=== PATIENT | female | born 1940 | race Caucasian/White ===

== ENCOUNTER 2016-10-01 07:42 | Day surgery (SDC) | payer MEDICARE ==
--- NOTE | 2016-09-25 12:46 | HP ---
DATE OF ADMISSION: 10/01/2016 HISTORY OF PRESENT ILLNESS: This is the first orthopedic outpatient admission for surgery for this 75-year- old female who is being evaluated and to undergo surgical treatment for a displaced right elbow olecranon fracture. The patient suffered a fall on 09/16/2016, slipping on the ice outside her home, causing injury. She had positive swelling and pain and was seen in the orthopedic clinic with x-rays found to have a displaced fracture. She is now being scheduled for surgical stabilization of the right olecranon fracture. Procedure has been outlined to her along with risks, complications involved with that and also the postoperative recovery phase. She understands and has consented to surgery. PAST MEDICAL HISTORY: The patient has a history of osteoporosis along with diabetes mellitus 2, gastroesophageal reflux disease. She has hypomagnesemia, hypothyroidism, osteoarthritis. She has peripheral arterial disease, polyarthritis is noted, history of recurrent urinary tract infections, and vitamin D deficiency. CURRENT MEDICATIONS: Include aspirin along with Plavix, calcium supplements. She is on furosemide, magnesium supplements. She is on insulin. She is on levothyroxine, lisinopril, Premarin, Prolia 60, ranitidine 150 mg, spironolactone, and multiple vitamin supplements. PAST SURGICAL HISTORY: Positive. She has had previous gallbladder surgery, hysterectomy. She has had median nerve carpal tunnel surgery, pancreatic surgery, shoulder surgery. Her bleeding history is negative. Blood clotting history is negative. SOCIAL HISTORY: She is nonsmoker and nondrinker. PHYSICAL EXAMINATION: GENERAL: Today reveals a well-developed, well-nourished 75-year-old female, in moderate distress. HEAD, EYES, EARS, NOSE, AND THROAT: Normocephalic. NECK: Supple. CHEST: Clear. COR: Regular rate. ABDOMEN: Soft. GENITOURINARY: Intact. EXTREMITIES: Examination of the right elbow reveals positive pain over the olecranon region with positive defect and olecranon bone itself. Hematoma, ecchymosis formation, and swelling present about the elbow and extending down into her forearm region. Circulation is intact. RADIOLOGY: X-rays reveal a displaced olecranon fracture of the right elbow. PLAN: The patient is to undergo surgical open reduction and internal fixation of olecranon fracture with pins and wire fixation-tension band. MMODAL /[id number]
[~2016-10-01 07:42] MED LIST: Lactated Ringers 1,000 ML IV SCH; Lidocaine 1%/Sod Bicarbonate in NS 8.4% 1 ML Syringe IV PRN; Sodium Chloride 0.9% 10 ML Syringe FLUSH PRN
[2016-10-01] MEDS ORDERED: Ondansetron 4 MG/2 ML SDV ONE (08:30)
[2016-10-01] MEDS ORDERED: ceFAZolin 1 GM Vial ONE (08:30)
[2016-10-01] MEDS ORDERED: Propofol 200 MG/20 ML SDV ONE ×2 (08:31→09:32)
[2016-10-01] MEDS ORDERED: fentaNYL 250 MCG/5 ML SDV ONE (08:31)
--- NOTE | 2016-10-01 08:47 | PCM.PREANE ---
Preanesthetic Assessment - Anesthesia/Transfusion/Family Hx Anesthesia History: Prior Anesthesia Without Reaction Family History of Anesthesia Reaction: No Transfusion History: No Prior Transfusion(s) Intubation History: Unknown - Review of Systems General: No Symptoms Pulmonary: No Symptoms (quit smoking in 2007), Cough (chronic consistent cough noted with post nasal drip.) Cardiovascular: No Symptoms (history of HTN, Peripheral artery disease, PVD/ left leg stent placed 2015 with patient stopping plavix for surgery.) Gastrointestinal: No symptoms (GERD, hisory of pancreatic surgery/ elevated liver enzymes noted.) Neurological: Numbness, Tingling (noted with all four extremities.) Other: Reports: None, Easy Bleeding, Easy Bruising, Diabetes (am blood sugar @ 0835=80), Liver Problems, Thyroid Problems (hypothyroid), Neck Pain (arthritis of c-spine noted per h/p.) - Physical Assessment NPO Status Date: 09/30/16 NPO Status Time: 21:30 Pulse: 62 O2 Sat by Pulse Oximetry: 98 Respiratory Rate: 16 Blood Pressure: 106/71 Temperature: 36.9 C Vital Signs: Last Vital Signs Temp 36.9 C 10/01/16 07:50 Pulse 62 10/01/16 07:50 Resp 16 10/01/16 07:50 BP 106/71 10/01/16 07:50 Pulse Ox 98 10/01/16 07:50 Height: 1.55 m Weight: 55.338 kg ASA Class: 3 Mental Status: Alert & Oriented x3 Airway Class: Mallampati = 2 Dentition: Reports: Dentures (upper), Partial (lower) Thyro-Mental Finger Breadths: 3 Mouth Opening Finger Breadths: 3 ROM/Head Extension: Full Lungs: Clear to auscultation, Normal respiratory effort Cardiovascular: Regular Rate, Regular Rhythm - Lab Values: Laboratory Last Values POC Glucose 80 mg/dL (83-110) L 10/01/16 08:35 MRSA screen is negative. Current labs reviewed, and noted and within acceptable ranges to proceed with scheduled procedure. - Imaging/EKG Impressions: EKG: sinus rhythm rate=75 Echocardiogram: EF=65-70% - Allergies Allergies/Adverse Reactions: Allergies Allergy/AdvReac Type Severity Reaction Status Date / Time No Known Allergies Allergy Verified 09/30/16 16:22 - Anesthesia Plan Pre-Op Medication Ordered: None - Acknowledgements Anesthesia Type Planned: General Anesthesia Pt an Appropriate Candidate for the Planned Anesthesia: Yes Alternatives and Risks of Anesthesia Discussed w Pt/Guardian: Yes Pt/Guardian Understands and Agrees with Anesthesia Plan: Yes PreAnesthesia Questionnaire HEENT History: Reports: Impaired vision, Other (see below) Other HEENT History: has upper denture and lower partial, wears glasses Cardiovascular History: Reports: Hypertension, Stents Other Cardiovascular History: peripheral arteriosclerosis, PAD Respiratory History: Reports: None Gastrointestinal History: Reports: GERD Other Gastrointestinal History: chronic liver disease, pancreatitis, pancreatic surgery, steatohepatitis, excision of pancreatic cyst, liver biopsy Other Genitourinary History: CKD III, dysuria, hematuria, UTI 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: Other OB/BYN History: atrophic vaginitis Musculoskeletal History: Reports: Osteoarthritis, Osteoporosis Other Musculoskeletal History: R elbow pain, degenration of mid cerical disc, arthritis of c spine, polyarthritis, R wrist injury Neurological History: Reports: None Psychiatric History: Reports: None Endocrine/Metabolic History: Reports: Diabetes, type II, Hypothyroidism, Vitamin D deficiency Hematologic History: Reports: Other (see below) Other Hematologic History: calcium deficiency, hypomagnesia Immunologic History: Reports: None Oncologic (Cancer) History: Reports: None Dermatologic History: Reports: None - Past Surgical History Head Surgeries/Procedures: Reports: None HEENT Surgical History: Reports: LASIK, Oral surgery GI Surgical History: Reports: Appendectomy, Cholecystectomy Female Surgical History: Reports: Hysterectomy, Tubal ligation Other Musculoskeletal Surgeries/Procedures:: Right rotator cuff repair, bilateral carpal tunnel release - SUBSTANCE USE Smoking Status *Q: Former Smoker Second Hand Smoke Exposure: No Days Per Week of Alcohol Use: 0 Number of Drinks Per Day: 0 Total Drinks Per Week: 0 Recreational Drug Use History: No - HOME MEDS Home Medications: Home Meds Acetaminophen/Codeine [Tylenol with Codeine No.3 300MG/30MG] 1 tab PO Q4H PRN [History] Amylase/Lipase/Protease [Cathy HIDALGO 24,000 Unit] 1 tab PO TID 12/27/13 [History] Aspirin [Jefferson Chewable Aspirin] 81 mg PO DAILY 12/27/13 [History] Esomeprazole [NexIUM] 40 mg PO DAILY 12/27/13 [History] Insulin Aspart [NovoLOG] 0 units SQ ASDIRECTED 12/27/13 [History] Insulin Glarg,Human.Rec.Analog [Lantus] 22 units SQ BEDTIME 12/27/13 [History] Lisinopril 2.5 mg PO DAILY 12/27/13 [History] Spironolactone [Aldactone] 25 mg PO DAILY 12/27/13 [History] diphenhydrAMINE [Benadryl] 50 mg PO BEDTIME 12/27/13 [History] Ca Carbonate/Vitamin D3/Vit K [Calcium + D Soft Chewable Tab] 1 tab PO TID 09/30 [History] Cholecalciferol (Vitamin D3) [Vitamin D3] 5,000 units PO DAILY 09/30/16 [History ] Clopidogrel [Plavix] 75 mg PO DAILY 09/30/16 [History] Denosumab [Prolia] 1 injection SQ ASDIRECTED 09/30/16 [History] Estrogens, Conjugated [Premarin Vaginal Crm] 1 applic VAG ASDIRECTED 09/30/16 [ History] Furosemide [Lasix] 40 mg PO DAILY 09/30/16 [History] Leg Cramp Relief 2 tab PO BID 09/30/16 [History] Levothyroxine [Synthroid] 100 mcg PO DAILY 09/30/16 [History] Magnesium Gluconate 27.5 mg PO BID 09/30/16 [History] Magnesium Oxide 500 mg PO BID 09/30/16 [History] Methylcellulose [Citrucel] 1,000 mg PO DAILY 09/30/16 [History] Ranitidine HCl [Zantac] 150 mg PO BID 09/30/16 [History] Rosuvastatin Calcium 5 mg PO BEDTIME 09/30/16 [History] Triamcinolone Acetonide [Triamcinolone Acetonide 0.1% Crm] 1 applic TOP ASDIRECTED PRN 09/30/16 [History] - CURRENT (IN HOUSE) MEDS Current Meds: Current Medications Lactated Ringer's (Ringers, Lactated) 1,000 mls @ 125 mls/hr IV ASDIRECTED [facility] Last Admin: 10/01/16 08:00 Dose: 125 mls/hr Lidocaine/Sodium Bicarbonate (Buffered Lidocaine 1% In Ns 8.4%) 0.25 ml IV ONETIME PRN PRN Reason: Prior to IV Start Last Admin: 10/01/16 07:59 Dose: 0.25 ml Sodium Chloride (Saline Flush) 10 ml FLUSH ASDIRECTED PRN PRN Reason: Keep Vein Open Discontinued Medications Cefazolin Sodium (Ancef) Confirm Administered Dose 2 gm .ROUTE .STK-MED ONE Stop: 10/01/16 08:31 Fentanyl (Sublimaze) Confirm Administered Dose 250 mcg .ROUTE .STK-MED ONE Stop: 10/01/16 08:32 Ondansetron HCl (Zofran) Confirm Administered Dose 4 mg .ROUTE .STK-MED ONE Stop: 10/01/16 08:31 Propofol (Diprivan 20 Ml) Confirm Administered Dose 200 mg .ROUTE .STK-MED ONE Stop: 10/01/16 08:32
[2016-10-01] MEDS ORDERED: Lidocaine 1% 0 ML ONE (09:31)
[2016-10-01] MEDS ORDERED: 50% Dextrose in Water 50 ML Syringe IVPUSH ONE (09:32)
[2016-10-01] MEDS ORDERED: fentaNYL 100 MCG/2 ML SDV ONE (09:32)
[2016-10-01] MEDS ORDERED: Midazolam 1 MG/ML 2 ML SDV ONE (09:32)
[2016-10-01] MEDS ORDERED: Iodine/Sodium Iodide 2% Tincture 30 ML Bottle ONE (09:53)
[2016-10-01] MEDS ORDERED: Lidocaine 1% with EPINEPHrine 1:100,000 20 ML MDV ONE (09:55)
[2016-10-01] MEDS ORDERED: Acetaminophen/Codeine 300-30 MG Tab PO PRN (10:00)
[2016-10-01] MEDS ORDERED: Ketorolac 15 MG/ML SDV IVPUSH PRN (10:00)
[2016-10-01] MEDS ORDERED: Ondansetron 4 MG/2 ML SDV IVPUSH PRN ×2 (10:00→11:01)
[2016-10-01] MEDS ORDERED: Sodium Chloride 0.9% 1,000 ML ONE (10:07)
[2016-10-01] MEDS: fentaNYL 100 MCG/2 ML SDV IVPUSH PRN ×3 (11:59→12:23)
--- NOTE | 2016-10-01 11:59 | PCM.POSTAN ---
POST ANESTHESIA ASSESSMENT - MENTAL STATUS Mental Status: alert, oriented - VITAL SIGNS Pulse Rate: 92 SaO2: 94 Resp Rate: 16 Blood Pressure: 137/52 Temperature: 36.2 C - RESPIRATORY Respiratory Status: respiratory rate WNL, airway patent, O2 saturation stable, supplemental oxygen - CARDIOVASCULAR CV Status: pulse rate WNL, blood pressure stable - GASTROINTESTINAL GI Status: no symptoms - PAIN Pain Score: 9 (fentany given via IV) - POST OP HYDRATION Hydration Status: adequate & stable
[2016-10-01] MEDS ORDERED: oxyCODONE ER 10 MG TAB.ER PO ONE (12:15)
[2016-10-01 13:47] VITALS: BP 135/50
--- NOTE | 2016-10-02 08:29 | CR ---
Right elbow: Two fluoroscopic spot views were obtained utilizing C-arm device of the right elbow. Comparison: Previous right elbow study of 09/25/16. Study shows less displacement of previously noted displaced olecranon process fracture. Fluoroscopy time given as 10.9 seconds. Impression: 1. Less displacement of previous fracture. Diagnostic code #2
--- NOTE | 2016-10-02 09:06 | OR ---
DATE OF OPERATION: 10/01/2016 SURGEON: Dick Bond MD PREOPERATIVE DIAGNOSIS: Comminuted olecranon fracture with avulsion of triceps tendon. POSTOPERATIVE DIAGNOSIS: Comminuted olecranon fracture with avulsion of triceps tendon. ANESTHESIA: General. OPERATION PERFORMED: Open reduction of olecranon fracture, repair of biceps tendon, and avulsion fracture, right elbow. DESCRIPTION OF PROCEDURE: The patient was taken to the operating room in supine position. She was placed under a general anesthesia. The right arm and upper extremity were prepped and draped by standard technique. After prepping and draping, the area of the right elbow was identified for approach, where the distal tip of the olecranon extending up onto the triceps through the skin and to the subcutaneous tissues and these were dissected off the olecranon bone structure and also over the triceps tendon muscle unit. Once the area of the fracture and avulsion was identified, it was then debrided, the hematoma and the early callus formation was removed from the fracture site creating a nice bleeding bed on the olecranon bone and then also bleeding structures on the triceps tendon with its bone fragments. I was opted not to go with a tension band wiring, but rather to go to a direct repair with drill holes being placed, angulated through the distal olecranon into the fracture site proximally. A #5 FiberWire was then used and passed through the drill holes, this incorporated into the distal triceps tendon securing but securely back onto the olecranon with the elbow in approximately 45 degrees of extension. Once the sutures were in place, 4 sutures were used, it was then tested, range of motion was full, there was absolutely no movement from fixation was identified at the site of repair. The operation proceeded with irrigation of wound area. The deep tissues were closed with 2-0 Vicryl and 3-0 Vicryl. Skin was then closed with interrupted 3-0 Prolene vertical and mattress sutures. The patient was then placed in standard dressings and splint. Hardcopy of x-rays were taken at the completion of the surgery, found the fracture repair to be almost anatomic. The patient tolerated the procedure well and left the operating room in stable condition to room for recovery. ESTIMATED BLOOD LOSS: MMODAL /[id number]
== END 2016-10-01 13:35 | disposition home or self-care (01) ==
LOC: JD.SDS 07:42
PROVIDERS: ATTEND Specialist
DX: S52.021A Displaced fracture of olecranon process without intraarticular extension of right ulna, initial encounter for closed fracture (principal); E11.9 Type 2 diabetes mellitus without complications; K21.9 Gastro-esophageal reflux disease without esophagitis; E83.42 Hypomagnesemia; E03.9 Hypothyroidism, unspecified; E55.9 Vitamin D deficiency, unspecified; I73.9 Peripheral vascular disease, unspecified; Z90.710 Acquired absence of both cervix and uterus; Z98.890 Other specified postprocedural states; W00.0XXA Fall on same level due to ice and snow, initial encounter; Y92.009 Unspecified place in unspecified non-institutional (private) residence as the place of occurrence of the external cause
CPT/HCPCS: 24341; 24685; 76000; 82962; A9270; J0690; J2405; J3010; J7040; J7060; J7120; 01710; J2250; J2704

== ENCOUNTER 2017-04-14 11:59 | Emergency (ER) | payer MEDICARE ==
[2017-04-14 12:12] VITALS: BP 114/62
[2017-04-14] MEDS ORDERED: Sodium Chloride 0.9% 10 ML Syringe FLUSH PRN (12:29)
--- NOTE | 2017-04-14 13:27 | EDM.PDOC ---
ED HPI GENERAL MEDICAL PROBLEM - General Chief Complaint: Respiratory Problem Stated Complaint: SOB Time Seen by Provider: 04/14/17 12:15 Source of Information: Reports: Patient, RN Notes Reviewed - History of Present Illness INITIAL COMMENTS - FREE TEXT/NARRATIVE: 76-year-old lady comes in with worsening shortness of breath, generalized weakness and dizziness especially with exertion. She states that she does get quite short of breath walking even short distances which is a change for her. Then does become also somewhat weak lightheaded and dizzy. With exertion and shortness of breath and her chest does start "getting tight". She has no chest discomfort at time of my exam. She has had very occasional nonproductive cough. He has had recent sinus congestion. She also has had increased diarrhea, primarily loose stools for about 2 weeks. Occasional nausea but has not been vomiting. No abdominal pain at this time. No recent fever or chills. Middle Chest Pain Score (Numeric/FACES): 2 - Related Data Allergies Allergy/AdvReac Type Severity Reaction Status Date / Time No Known Allergies Allergy Verified 04/14/17 12:12 Home Meds: Home Meds Acetaminophen/Codeine [Tylenol with Codeine No.3 300MG/30MG] 1 tab PO Q4H PRN [History] Amylase/Lipase/Protease [Cathy HIDALGO 24,000 Unit] 1 tab PO TID 12/27/13 [History] Aspirin [Jefferson Chewable Aspirin] 81 mg PO DAILY 12/27/13 [History] Esomeprazole [NexIUM] 40 mg PO DAILY 12/27/13 [History] Insulin Aspart [NovoLOG] 0 units SQ ASDIRECTED 12/27/13 [History] Insulin Glarg,Human.Rec.Analog [Lantus] 22 units SQ BEDTIME 12/27/13 [History] Lisinopril 2.5 mg PO DAILY 12/27/13 [History] Spironolactone [Aldactone] 25 mg PO DAILY 12/27/13 [History] diphenhydrAMINE [Benadryl] 50 mg PO BEDTIME 12/27/13 [History] Ca Carbonate/Vitamin D3/Vit K [Calcium + D Soft Chewable Tab] 1 tab PO TID 09/30 [History] Cholecalciferol (Vitamin D3) [Vitamin D3] 5,000 units PO BID 09/30/16 [History] Clopidogrel [Plavix] 75 mg PO DAILY 09/30/16 [History] Denosumab [Prolia] 1 injection SQ ASDIRECTED 09/30/16 [History] Estrogens, Conjugated [Premarin Vaginal Crm] 1 applic VAG ASDIRECTED 09/30/16 [ History] Furosemide [Lasix] 40 mg PO DAILY 09/30/16 [History] Levothyroxine [Synthroid] 100 mcg PO DAILY 09/30/16 [History] Magnesium Oxide 500 mg PO BID 09/30/16 [History] Triamcinolone Acetonide [Triamcinolone Acetonide 0.1% Crm] 1 applic TOP ASDIRECTED PRN 09/30/16 [History] Calcium Carbonate [Calcium] 1,200 mg PO DAILY 04/14/17 [History] Sulfamethoxazole/Trimethoprim [Bactrim Ds Tablet] 0.5 tab PO Q48H 04/14/17 [ History] Past Medical History HEENT History: Reports: Impaired Vision, Other (See Below) Other HEENT History: has upper denture and lower partial, wears glasses Cardiovascular History: Reports: Hypertension, Stents Other Cardiovascular History: peripheral arteriosclerosis, PAD Respiratory History: Reports: None Gastrointestinal History: Reports: GERD Other Gastrointestinal History: chronic liver disease, pancreatitis, pancreatic surgery, steatohepatitis, excision of pancreatic cyst, liver biopsy Other Genitourinary History: CKD III, dysuria, hematuria, UTI [employer] 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: Other OB/BYN History: atrophic vaginitis Musculoskeletal History: Reports: Osteoarthritis, Osteoporosis Other Musculoskeletal History: R elbow pain, degenration of mid cerical disc, arthritis of c spine, polyarthritis, R wrist injury Neurological History: Reports: None Psychiatric History: Reports: None Endocrine/Metabolic History: Reports: Diabetes, Type II, Hypothyroidism, Vitamin D Deficiency Hematologic History: Reports: Other (See Below) Other Hematologic History: calcium deficiency, hypomagnesia Immunologic History: Reports: None Oncologic (Cancer) History: Reports: None Dermatologic History: Reports: None - Past Surgical History Head Surgeries/Procedures: Reports: None HEENT Surgical History: Reports: LASIK, Oral Surgery GI Surgical History: Reports: Appendectomy, Cholecystectomy Female Surgical History: Reports: Hysterectomy, Tubal Ligation Other Musculoskeletal Surgeries/Procedures:: Right rotator cuff repair, bilateral carpal tunnel release Social & Family History - Tobacco Use Smoking Status *Q: Former Smoker Years of Tobacco use: 40 Used Tobacco, but Quit: Yes Month Tobacco Last Used: 10 years Second Hand Smoke Exposure: No - Caffeine Use Caffeine Use: Reports: Coffee, Tea - Alcohol Use Days Per Week of Alcohol Use: 0 Number of Drinks Per Day: 0 Total Drinks Per Week: 0 - Recreational Drug Use Recreational Drug Use: No Drug Use in Last 12 Months: No ED ROS GENERAL - Review of Systems Review Of Systems: See Below Constitutional: Denies: Fever, Chills, Diaphoresis HEENT: Reports: Rhinitis (There has been some sinus congestion mild), Sinus Problem. Denies: Throat Pain, Vertigo Respiratory: Reports: Shortness of Breath. Denies: Wheezing, Pleuritic Chest Pain Cardiovascular: Reports: Chest Pain (Occasional tightness, especially with exertion) GI/Abdominal: Reports: Diarrhea (Primarily loose stools). Denies: Abdominal Pain, Nausea, Vomiting Musculoskeletal: Denies: Neck Pain, Shoulder Pain, Arm Pain Skin: Reports: No Symptoms Neurological: Reports: Dizziness (With exertion), Weakness. Denies: Trouble Speaking (Mild generalized with exertion) ED EXAM, GENERAL - Physical Exam Exam: See Below Exam Limited By: No Limitations General Appearance: Alert, No Apparent Distress Eye Exam: Bilateral Eye: PERRL Throat/Mouth: Normal Inspection, Normal Oropharynx Head: Atraumatic. No: Facial Swelling Neck: Normal Inspection, Supple Respiratory/Chest: No Respiratory Distress, Lungs Clear, Normal Breath Sounds. No: Rales, Rhonchi, Wheezing Cardiovascular: Regular Rate, Rhythm GI/Abdominal: Soft, Non-Tender. No: Guarding Back Exam: Normal Inspection Extremities: Normal Inspection. No: Pedal Edema, Leg Pain Neurological: Alert, Oriented, No Motor/Sensory Deficits Skin Exam: Warm, Dry, Normal Color EKG INTERPRETATION EKG Date: 04/14/17 Rhythm: NSR [place]: Normal P-Wave: Present QRS: Normal ST-T: Other (Diffuse T-wave inversion) Course - Vital Signs Text/Narrative:: Chest x-ray looks normal. Last Recorded V/S: Last Vital Signs Temp 96.2 F 04/14/17 12:08 Pulse 99 04/14/17 12:08 Resp 18 04/14/17 12:08 BP 114/62 04/14/17 12:08 Pulse Ox 98 04/14/17 12:08 - Orders/Labs/Meds Orders: Active Orders 24 hr Category Date Time Status EKG 12 Lead [EKG Documentation Completion] [RC] STAT Care 04/14/17 12:29 Active Peripheral IV Care [RC] . DIRECTED Care 04/14/17 12:30 Active Chest 1V Frontal [CR] Stat Exams 04/14/17 12:29 Taken Sodium Chloride 0.9% [Saline Flush] Med 04/14/17 12:29 Active 10 ml FLUSH ASDIRECTED PRN Peripheral IV Insertion Adult [OM.PC] Stat Oth 04/14/17 12:30 Ordered Medication Orders Sodium Chloride (Saline Flush) 10 ml FLUSH ASDIRECTED PRN PRN Reason: Keep Vein Open Labs: Laboratory Tests 04/14/17 04/14/17 04/14/17 Range/Units 12:47 12:47 12:47 WBC 8.19 (3.98-10.04) K/mm3 RBC 3.65 L (3.98-5.22) M/mm3 Hgb 11.4 (11.2-15.7) gm/L Hct 35.0 (34.1-44.9) % MCV 95.9 H (79.4-94.8) fl MCH 31.2 (25.6-32.2) pg MCHC 32.6 (32.2-35.5) g/dl RDW Std Deviation 43.5 (36.4-46.3) fL Plt Count 211 (182-369) K/mm3 MPV 10.3 (9.4-12.3) fl Neut % (Auto) 69.2 (34.0-71.1) % Lymph % (Auto) 22.0 (19.3-51.7) % [place] % (Auto) 7.8 (4.7-12.5) % Eos % (Auto) 0.6 L (0.7-5.8) Baso % (Auto) 0.2 (0.1-1.2) % Neut # (Auto) 5.66 (1.56-6.13) K/mm3 Lymph # (Auto) 1.80 (1.18-3.74) K/mm3 [place] # (Auto) 0.64 H (0.24-0.36) K/mm3 Eos # (Auto) 0.05 (0.04-0.36) K/mm3 Baso # (Auto) 0.02 (0.01-0.08) K/mm3 D-Dimer, Quantitative (0.19-0.59) mg/L Sodium 134 L (136-145) mEq/L Potassium 5.5 H (3.5-5.1) mEq/L Chloride 101 (98-107) mEq/L Carbon Dioxide 24 (21-32) mEq/L Anion Gap 14.5 (5-15) BUN 20 H (7-18) mg/dL Creatinine 1.4 H (0.55-1.02) mg/dL Est Cr Clr Drug Dosing 26.20 mL/min Estimated GFR (MDRD) 37 (>60) mL/min BUN/Creatinine Ratio 14.3 (14-18) Glucose 331 H (83-115) mg/dL Calcium 8.6 (8.5-10.1) mg/dL Total Bilirubin 0.9 (0.2-1.0) mg/dL AST 250 H (15-37) U/L ALT 157 H (14-59) U/L Alkaline Phosphatase 178 H (46-116) U/L C-Reactive Protein < 0.2 (<1.0) mg/dL NT-Pro-B Natriuret Pep 88373 H (0-450) pg/mL Total Protein 5.8 L (6.4-8.2) g/dl Albumin 3.1 L (3.4-5.0) g/dl Globulin 2.7 gm/dL Albumin/Globulin Ratio 1.2 (1-2) 04/14/17 04/14/17 Range/Units 12:47 15:40 WBC (3.98-10.04) K/mm3 RBC (3.98-5.22) M/mm3 Hgb (11.2-15.7) gm/L Hct (34.1-44.9) % MCV (79.4-94.8) fl MCH (25.6-32.2) pg MCHC (32.2-35.5) g/dl RDW Std Deviation (36.4-46.3) fL Plt Count (182-369) K/mm3 MPV (9.4-12.3) fl Neut % (Auto) (34.0-71.1) % Lymph % (Auto) (19.3-51.7) % [place] % (Auto) (4.7-12.5) % Eos % (Auto) (0.7-5.8) Baso % (Auto) (0.1-1.2) % Neut # (Auto) (1.56-6.13) K/mm3 Lymph # (Auto) (1.18-3.74) K/mm3 [place] # (Auto) (0.24-0.36) K/mm3 Eos # (Auto) (0.04-0.36) K/mm3 Baso # (Auto) (0.01-0.08) K/mm3 D-Dimer, Quantitative 0.55 (0.19-0.59) mg/L Sodium (136-145) mEq/L Potassium 4.8 (3.5-5.1) mEq/L Chloride (98-107) mEq/L Carbon Dioxide (21-32) mEq/L Anion Gap (5-15) BUN (7-18) mg/dL Creatinine (0.55-1.02) mg/dL Est Cr Clr Drug Dosing mL/min Estimated GFR (MDRD) (>60) mL/min BUN/Creatinine Ratio (14-18) Glucose (83-115) mg/dL Calcium (8.5-10.1) mg/dL Total Bilirubin (0.2-1.0) mg/dL AST (15-37) U/L ALT (14-59) U/L Alkaline Phosphatase (46-116) U/L C-Reactive Protein (<1.0) mg/dL NT-Pro-B Natriuret Pep (0-450) pg/mL Total Protein (6.4-8.2) g/dl Albumin (3.4-5.0) g/dl Globulin gm/dL Albumin/Globulin Ratio (1-2) Meds: Medications Generic Name Dose Route Start Last Admin Trade Name Freq PRN Reason Stop Dose Admin Sodium Chloride 10 ml 04/14/17 12:29 Saline Flush FLUSH ASDIRECTED PRN Keep Vein Open - Re-Assessments/Exams Free Text/Narrative Re-Assessment/Exam: 04/14/17 16:13 Initial potassium came back at 5.5, other labs as documented I did have lab do a repeat drawn that came back at 4.8. I do not have a good explanation for her dyspnea with exertion. Her chest x-ray looks very clear. I do not see that she is in any significant failure, no evidence for pneumonia or other acute pulmonary abnormality. Sats have been good while here in the ED. She is not tachypneic at rest. D-dimer is normal. Discharge instructions as documented Departure - Departure Time of Disposition: 16:07 Disposition: Home, Self-Care 01 Condition: Fair Clinical Impression: Dizziness Dyspnea Qualifiers: Dyspnea type: dyspnea on exertion Qualified Code(s): R06.09 - Other forms of dyspnea - Discharge Information Instructions: Shortness of Breath, Dizziness Referrals: Lexy Ruvalcaba, [employer] [Primary Care Provider] - Forms: ED Department Discharge Additional Instructions: Decrease your potassium to 1 tablet daily, continue other medications as prescribed, be sure to drink plenty of water. Try move your appointment with Loren up to next week, call clinic this afternoon or tomorrow morning to try make that change, return to ED if symptoms worsening in any way. - My Orders Last 24 Hours: My Active Orders 04/14/17 12:29 EKG 12 Lead [EKG Documentation Completion] [RC] STAT Chest 1V Frontal [CR] Stat Sodium Chloride 0.9% [Saline Flush] 10 ml FLUSH ASDIRECTED PRN 04/14/17 12:30 Peripheral IV Care [RC] . DIRECTED Peripheral IV Insertion Adult [OM.PC] Stat - Assessment/Plan Last 24 Hours: My Active Orders 04/14/17 12:29 EKG 12 Lead [EKG Documentation Completion] [RC] STAT Chest 1V Frontal [CR] Stat Sodium Chloride 0.9% [Saline Flush] 10 ml FLUSH ASDIRECTED PRN 04/14/17 12:30 Peripheral IV Care [RC] . DIRECTED Peripheral IV Insertion Adult [OM.PC] Stat
--- NOTE | 2017-04-15 11:00 | CR ---
Chest: Portable view of the chest was obtained. Comparison: Prior chest x-ray of 10/06/14. Heart size and mediastinum are within normal limits. Lungs are clear. Surgical clips are seen within the upper right abdomen. Previous right shoulder surgery is noted. Impression: 1. Incidental findings. Nothing acute is identified on portable chest x-ray. Diagnostic code #2
== END 2017-04-14 16:15 | disposition home or self-care (01) ==
LOC: JD.ED 11:59
DX: R42 Dizziness and giddiness (principal); R06.02 Shortness of breath; I12.9 Hypertensive chronic kidney disease with stage 1 through stage 4 chronic kidney disease, or unspecified chronic kidney disease; E11.22 Type 2 diabetes mellitus with diabetic chronic kidney disease; N18.3 Chronic kidney disease, stage 3 (moderate); E03.9 Hypothyroidism, unspecified; Z87.891 Personal history of nicotine dependence; M19.90 Unspecified osteoarthritis, unspecified site; Z79.899 Other long term (current) drug therapy; Z79.4 Long term (current) use of insulin; Z79.82 Long term (current) use of aspirin
CPT/HCPCS: 36415; 71010; 71010-26; 80053; 83880; 84132; 85025; 85379; 86140; 93005; 93010; 99283-25; 99285-25

== ENCOUNTER 2018-02-13 08:14 | Day surgery (SDC) | payer MEDICARE ==
--- NOTE | 2018-02-13 07:05 | HP ---
DATE OF ADMISSION: 02/13/2018 CHIEF COMPLAINT: Uncomfortable lump in the mid abdomen. HISTORY OF PRESENT ILLNESS: This 77-year-old female has complaints of uncomfortable lump in the middle portion of her abdomen. This by history and examination is compatible with an incisional hernia. She states she has had this over the last 2 years and it is most uncomfortable after she eats. It is easily visible. She is able to push it in, but with some difficulty and it spontaneously returns, characteristic of a hernia. She shows no signs of obstruction and is not incarcerated. This is a primary hernia and in an old incision area from her prior surgeries. PAST MEDICAL HISTORY: The patient has no known allergies. CURRENT MEDICATIONS: Multiple and they are on her chart. These were all reviewed. Significant ones are carvedilol 6.25 mg p.o. twice a day. She takes Creon 24,000 with meals. She takes a furosemide 40 mg. She takes levothyroxine, lisinopril 2.5 mg, magnesium gluconate, NovoLog 100 units subcutaneous. She takes potassium supplements one daily, ranitidine for reflux, spironolactone 1 tablet a day, and multiple [id number] medications. 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 She has also had a cholecystectomy and appendectomy. She had a lower midline incision from a hysterectomy that was preceded by a tubal ligation. She has had no other surgeries. FAMILY HISTORY/SOCIAL HISTORY: She is single. She is 1 of 10 children. She has 7 children who were born vaginally. 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 REVIEW OF SYSTEMS: ENDOCRINE: Positive for insulin-dependent diabetes. CARDIOVASCULAR: Positive for history of congestive heart failure, however, cardiology workup done 1 month ago cleared her for any surgical procedure and she is currently totally asymptomatic. GASTROINTESTINAL: Positive for reflux. All other systems are negative. PHYSICAL EXAMINATION: HEENT: Normal. The patient wears glasses and sees adequately. NECK: There is no adenopathy and no bruits are noted. CHEST: Lungs are clear bilaterally to auscultation. HEART: Normal sinus rhythm without murmur. ABDOMEN: Shows a reducible hernia about 4 cm above the umbilicus and a midline incision. This dissects off to the right side but is reducible, and hernia defect itself only measures less than 2 cm. This contains bowel as it is palpable in the hernia and being reduced. EXTREMITIES: Normal. Have no edema. Good range of motion and pulses. NEUROLOGIC: Grossly intact. ASSESSMENT: Incisional hernia. PLAN: I discussed risks, benefits, and expected outcomes from an incisional hernia repair with this patient. She has a Cardiology clearance and otherwise is healthy. This should be relatively simple hernia to fix and should be able to be done under general anesthesia but as an outpatient. MMCHINYERE /[id number]
[~2018-02-13 08:14] MED LIST changes: +Lidocaine 1%/Sod Bicarbonate in NS 8.4% 1 ML Syringe IDERM PRN; -Lidocaine 1%/Sod Bicarbonate in NS 8.4% 1 ML Syringe IV PRN
--- NOTE | 2018-02-13 09:28 | PCM.PREANE ---
Preanesthetic Assessment - Anesthesia/Transfusion/Family Hx Anesthesia History: Prior Anesthesia Without Reaction Family History of Anesthesia Reaction: No Transfusion History: No Prior Transfusion(s) Intubation History: Unknown - Review of Systems General: No Symptoms Pulmonary: No Symptoms Cardiovascular: No Symptoms, Other (History of CHF, ECHO 45-50%, on lasix, denies symptoms, >4 MET activity tolerance. Cleared per cardiology for surgery. ) Gastrointestinal: Other (GERD with Hiatal hernia, controlled with her medication. No symptoms currently. ) Neurological: No Symptoms Other: Reports: Diabetes (Type II, Blood glucose 156 this am. ), Liver Problems (Chronic Pancreatitis), Thyroid Problems - Physical Assessment NPO Status Date: 02/12/18 NPO Status Time: 21:30 Pulse: 58 O2 Sat by Pulse Oximetry: 96 Respiratory Rate: 16 Blood Pressure: 142/69 Temperature: 36.3 C Weight: 52.6 kg ASA Class: 3 Mental Status: Alert & Oriented x3 Airway Class: Mallampati = 2 Dentition: Reports: Dentures, Partial Thyro-Mental Finger Breadths: 3 Mouth Opening Finger Breadths: 3 ROM/Head Extension: Full Lungs: Clear to Auscultation, Normal Respiratory Effort Cardiovascular: Regular Rate, Regular Rhythm, Other - Lab Values: Laboratory Last Values POC Glucose 156 mg/dL (83-110) H 02/13/18 09:10 - Allergies Allergies/Adverse Reactions: Allergies Allergy/AdvReac Type Severity Reaction Status Date / Time Iodinated Contrast- Oral and Allergy Vomiting Verified 02/12/18 14:14 IV Dye - Anesthesia Plan Beta Melchor: Carvedilol Med Last Dose Date: 02/13/18 Med Last Dose Time: 06:00 - Acknowledgements Anesthesia Type Planned: MAC Pt an Appropriate Candidate for the Planned Anesthesia: Yes Alternatives and Risks of Anesthesia Discussed w Pt/Guardian: Yes Pt/Guardian Understands and Agrees with Anesthesia Plan: Yes PreAnesthesia Questionnaire HEENT History: Reports: Impaired Vision, Other (See Below) Other HEENT History: has upper denture and lower partial, wears glasses Cardiovascular History: Reports: Hypertension, Stents Other Cardiovascular History: peripheral arteriosclerosis, PAD Respiratory History: Reports: None Gastrointestinal History: Reports: GERD Other Gastrointestinal History: chronic liver disease, pancreatitis, pancreatic surgery, steatohepatitis, excision of pancreatic cyst, liver biopsy Other Genitourinary History: CKD III, dysuria, hematuria, UTI AXLE TURNER History: Reports: Other OB/BYN History: atrophic vaginitis Musculoskeletal History: Reports: Osteoarthritis, Osteoporosis Other Musculoskeletal History: R elbow pain, degenration of mid cerical disc, arthritis of c spine, polyarthritis, R wrist injury Neurological History: Reports: None Psychiatric History: Reports: None Endocrine/Metabolic History: Reports: Diabetes, Type II, Hypothyroidism, Vitamin D Deficiency Hematologic History: Reports: Other (See Below) Other Hematologic History: calcium deficiency, hypomagnesia Immunologic History: Reports: None Oncologic (Cancer) History: Reports: None Dermatologic History: Reports: None - Past Surgical History Head Surgeries/Procedures: Reports: None HEENT Surgical History: Reports: LASIK, Oral Surgery GI Surgical History: Reports: Appendectomy, Cholecystectomy Female Surgical History: Reports: Hysterectomy, Tubal Ligation Other Musculoskeletal Surgeries/Procedures:: Right rotator cuff repair, bilateral carpal tunnel release - HOME MEDS Home Medications: Home Meds Acetaminophen/Codeine [Tylenol with Codeine No.3 300MG/30MG] 1 tab PO Q4H PRN [History] Amylase/Lipase/Protease [Creon DR 24,000 Unit] 1 tab PO TID 12/27/13 [History] Insulin Aspart [NovoLOG] 0 units SQ ASDIRECTED 12/27/13 [History] Lisinopril 2.5 mg PO DAILY 12/27/13 [History] Spironolactone [Aldactone] 25 mg PO DAILY 12/27/13 [History] diphenhydrAMINE [Benadryl] 50 mg PO BEDTIME 12/27/13 [History] Ca Carbonate/Vitamin D3/Vit K [Calcium + D Soft Chewable Tab] 1 tab PO TID 09/30 [History] Cholecalciferol (Vitamin D3) [Vitamin D3] 5,000 units PO DAILY 09/30/16 [History ] Denosumab [Prolia] 1 injection SQ ASDIRECTED 09/30/16 [History] Furosemide [Lasix] 40 mg PO BID 09/30/16 [History] Carvedilol 6.25 mg PO BID 02/12/18 [History] Cyanocobalamin (Vitamin B-12) [Vitamin B-12] 1,000 mcg PO DAILY 02/12/18 [ History] Insulin Glargine,Hum.Rec.Anlog [Basaglar Kwikpen U-100] 22 units SQ DAILY [History] Leg Cramp Relief 2 tab PO BID 02/12/18 [History] Levothyroxine 112 mcg PO DAILY 02/12/18 [History] Magnesium Gluconate [Magonate] 1 tab PO TID 02/12/18 [History] Methylcellulose [Citrucel] 1,000 mg PO DAILY 02/12/18 [History] Potassium 99 mg PO DAILY 02/12/18 [History] Ranitidine [Zantac] 150 mg PO BID 02/12/18 [History] Rosuvastatin [Crestor] 5 mg PO DAILY 02/12/18 [History] - CURRENT (IN HOUSE) MEDS Current Meds: Current Medications Lactated Ringer's (Ringers, Lactated) 1,000 mls @ 125 mls/hr IV ASDIRECTED LAZARA Stop: 02/13/18 23:00 Lidocaine/Sodium Bicarbonate (Buffered Lidocaine 1% In Ns 8.4%) 0.25 ml IDERM ONETIME PRN PRN Reason: Prior to IV Start Stop: 02/13/18 18:00 Sodium Chloride (Saline Flush) 10 ml FLUSH ASDIRECTED PRN PRN Reason: Keep Vein Open Stop: 02/13/18 18:00
[2018-02-13] MEDS ORDERED: Propofol 200 MG/20 ML SDV ONE (10:21)
[2018-02-13] MEDS ORDERED: Lidocaine 1% 4 ML ONE (10:22)
[2018-02-13] MEDS ORDERED: fentaNYL 100 MCG/2 ML SDV ONE (10:22)
[2018-02-13] MEDS ORDERED: Lidocaine 1% with EPINEPHrine 1:100,000 20 ML MDV ONE (11:11)
[2018-02-13] MEDS ORDERED: Ketamine 500 mg/10 ML MDV ONE (11:27)
[2018-02-13 13:30] VITALS: BP 119/79
--- NOTE | 2018-02-13 18:07 | OR ---
DATE OF OPERATION: 02/13/2018 SURGEON: Miquel Brooke MD PREOPERATIVE DIAGNOSIS: Incisional hernia. POSTOPERATIVE DIAGNOSIS: Incisional hernia. OPERATION PERFORMED: Open repair of incisional hernia. ANESTHESIA: Local plus MAC. SPECIMEN: None. INDICATION FOR PROCEDURE: This 77-year-old female has a symptomatic incisional hernia. She has had multiple abdominal surgeries including pancreatectomy, cholecystectomy, appendectomy, and hysterectomy. She has a palpable mass just above the umbilicus up to the right side, consistent with incisional hernia. This tends to bother her primarily after eating. DESCRIPTION OF PROCEDURE: After adequate preparation, a midline incision was localized with 1% xylocaine. An incision was made and carried down to the fascia. This was from the hernia sac. The defect measured 2 cm in diameter. The sac and contents were reduced back into the abdomen. There was a free area underneath the fascial edges that was cleared up and the wound was closed transversely using interrupted 0 Ethibond sutures. A 3-0 Vicryl was used for the subcutaneous layer and 4-0 Monocryl for the skin. The patient was taken to the recovery room. ESTIMATED BLOOD LOSS: MMODAL /[id number]
== END 2018-02-13 12:40 | disposition home or self-care (01) ==
LOC: JD.SDS 08:14
PROVIDERS: ATTEND Surgery
DX: K43.2 Incisional hernia without obstruction or gangrene (principal); K21.9 Gastro-esophageal reflux disease without esophagitis; I73.9 Peripheral vascular disease, unspecified; I13.0 Hypertensive heart and chronic kidney disease with heart failure and stage 1 through stage 4 chronic kidney disease, or unspecified chronic kidney disease; E11.22 Type 2 diabetes mellitus with diabetic chronic kidney disease; N18.3 Chronic kidney disease, stage 3 (moderate); I50.9 Heart failure, unspecified; M19.90 Unspecified osteoarthritis, unspecified site; M81.0 Age-related osteoporosis without current pathological fracture; E55.9 Vitamin D deficiency, unspecified; Z79.4 Long term (current) use of insulin; Z79.899 Other long term (current) drug therapy; Z98.890 Other specified postprocedural states; Z91.041 Radiographic dye allergy status
CPT/HCPCS: 49560; 82962; J2704; J3010; J7120; J2001

== ENCOUNTER 2019-03-17 15:17 | Observation (INO) | payer MEDICARE ==
[2019-03-17] MEDS ORDERED: 50% Dextrose in Water 50 ML Syringe ONE (15:22)
[2019-03-17] MEDS ORDERED: 50% Dextrose in Water 50 ML Syringe IVPUSH ONE (15:27)
[2019-03-17] MEDS ORDERED: Sodium Chloride 0.9% 10 ML Syringe FLUSH PRN ×2 (15:32→21:04)
[2019-03-17] MEDS ORDERED: Sodium Chloride 0.9% 1,000 ML IV SCH (15:45)
--- NOTE | 2019-03-17 16:08 | EDM.PDOC ---
ED HPI GENERAL MEDICAL PROBLEM - General Chief Complaint: Neuro Symptoms/Deficits Stated Complaint: [facility] Time Seen by Provider: 03/17/19 15:25 Source of Information: Reports: Patient, EMS, Family History Limitations: Reports: Altered Mental Status - History of Present Illness INITIAL COMMENTS - FREE TEXT/NARRATIVE: The patient presents by [facility] for confusion. She was found in her son's home laying on the floor. It appears she fell. She went there to drop something off. Her son was not home and when he did return later, they found her on the floor. She had a contusion to the forehead. She was confused and cold Her blood sugar was 56 here. An IV was established and 25grams of D50 was given IV. She has no neck pain, chest pain, shortness of breath, abdominal pain, nausea or vomiting. She has no hip pain. She is normally alert and orientated. Even after the blood sugar she was confused. She said she did the laundry at her house. She is cold with a rectal temp of 88. Onset: Gradual Duration: Hour(s): Location: Reports: Head Quality: Reports: Ache Severity: Mild Improves with: Reports: None Worsens with: Reports: None Context: Reports: Trauma (Fall) - Related Data Allergies Allergy/AdvReac Type Severity Reaction Status Date / Time No Known Allergies Allergy Verified 03/17/19 16:27 Home Meds: Home Meds Acetaminophen/Codeine [Tylenol with Codeine No.3 300MG/30MG] 1 tab PO Q4H PRN [History] Amylase/Lipase/Protease [Cathy HIDALGO 24,000 Unit] 1 tab PO TID 12/27/13 [History] Insulin Aspart [NovoLOG] 0 units SQ ASDIRECTED 12/27/13 [History] Lisinopril 2.5 mg PO DAILY 12/27/13 [History] Spironolactone [Aldactone] 25 mg PO DAILY 12/27/13 [History] diphenhydrAMINE [Benadryl] 50 mg PO BEDTIME 12/27/13 [History] Ca Carbonate/Vitamin D3/Vit K [Calcium + D Soft Chewable Tab] 1 tab PO BID 09/30 [History] Cholecalciferol (Vitamin D3) [Vitamin D3] 5,000 units PO DAILY 05/08/17 [History ] Denosumab [Prolia] 1 injection SQ ASDIRECTED 09/30/16 [History] Furosemide [Lasix] 40 mg PO BID 09/30/16 [History] Carvedilol 6.25 mg PO BID 02/12/18 [History] Cyanocobalamin (Vitamin B-12) [Vitamin B-12] 1,000 mcg PO DAILY 02/12/18 [ History] Insulin Glargine,Hum.Rec.Anlog [Basaglar Kwikpen U-100] 22 units SQ DAILY [History] Leg Cramp Relief 2 tab PO BID 02/12/18 [History] Magnesium Gluconate [Magonate] 2 tab PO TID 02/12/18 [History] Potassium 99 mg PO DAILY 02/12/18 [History] Rosuvastatin [Crestor] 5 mg PO DAILY 02/12/18 [History] Clopidogrel [Plavix] 75 mg PO DAILY 02/13/18 [History] Pantoprazole Sodium [Protonix] 20 mg PO DAILY 12/15/18 [History] Acetaminophen [Tylenol] 650 mg PO Q6H 03/17/19 [History] Aspirin 81 mg PO DAILY 03/17/19 [History] Ciprofloxacin [Ciprofloxacin HCl] 250 mg PO DAILY 03/17/19 [History] Levothyroxine 112 mcg PO DAILY 03/17/19 [History] Past Medical History HEENT History: Reports: Impaired Vision, Other (See Below) Other HEENT History: has upper denture and lower partial, wears glasses Cardiovascular History: Reports: Hypertension, Stents Other Cardiovascular History: peripheral arteriosclerosis, PAD Respiratory History: Reports: None Gastrointestinal History: Reports: GERD Other Gastrointestinal History: chronic liver disease, pancreatitis, pancreatic surgery, steatohepatitis, excision of pancreatic cyst, liver biopsy Other Genitourinary History: CKD III, dysuria, hematuria, UTI [employer] History: Reports: Other [employer] History: atrophic vaginitis Musculoskeletal History: Reports: Osteoarthritis, Osteoporosis Other Musculoskeletal History: R elbow pain, degenration of mid cerical disc, arthritis of c spine, polyarthritis, R wrist injury Neurological History: Reports: None Psychiatric History: Reports: None Endocrine/Metabolic History: Reports: Diabetes, Type II, Hypothyroidism, Vitamin D Deficiency Hematologic History: Reports: Other (See Below) Other Hematologic History: calcium deficiency, hypomagnesia Immunologic History: Reports: None Oncologic (Cancer) History: Reports: None Dermatologic History: Reports: None - Past Surgical History Head Surgeries/Procedures: Reports: None HEENT Surgical History: Reports: LASIK, Oral Surgery Respiratory Surgical History: Reports: None GI Surgical History: Reports: Appendectomy, Cholecystectomy Female Surgical History: Reports: Hysterectomy, Tubal Ligation Endocrine Surgical History: Reports: None Neurological Surgical History: Reports: None Other Musculoskeletal Surgeries/Procedures:: Right rotator cuff repair, bilateral carpal tunnel release Oncologic Surgical History: Reports: None Social & Family History - Tobacco Use Smoking Status *Q: Unknown Ever Smoked - Caffeine Use Caffeine Use: Reports: Other Caffeine Use Comment: Unable to obtain due to AMS. ED ROS GENERAL - Review of Systems Review Of Systems: See Below Constitutional: Reports: No Symptoms HEENT: Reports: No Symptoms Respiratory: Reports: No Symptoms Cardiovascular: Reports: No Symptoms Endocrine: Reports: No Symptoms GI/Abdominal: Reports: No Symptoms : Reports: No Symptoms Musculoskeletal: Reports: Other (Skin tear right elbow) Neurological: Reports: Confusion ED EXAM, NEURO - Physical Exam Exam: See Below Exam Limited By: Altered Mental Status General Appearance: Alert Ears: Normal External Exam Nose: Normal Inspection Head Exam: Other (Eccymosis, edema and an abrasion to the left forehead) Neck: Tender Midline Respiratory/Chest: No Respiratory Distress, Lungs Clear, Normal Breath Sounds Cardiovascular: Regular Rate, Rhythm, No Edema, No Murmur GI/Abdominal: Soft, Non-Tender, No Organomegaly, No Mass Neurological: Alert, No Motor/Sensory Deficits, Other (Confused) Back Exam: Normal Inspection Extremities: Other (Skin tear to the right elbow. abrasion to the left ankle, knee and hip without pain) EKG INTERPRETATION EKG Date: 03/17/19 Time: 16:20 Rhythm: NSR Rate (Beats/Min): 51 Ward: Normal P-Wave: Present QRS: Normal ST-T: Normal QT: Normal Course - Vital Signs Last Recorded V/S: Last Vital Signs Temp 88.3 F L 03/17/19 15:38 Pulse 58 L 03/17/19 15:38 Resp 16 03/17/19 15:38 BP 136/119 H 03/17/19 15:38 Pulse Ox 100 03/17/19 15:38 - Orders/Labs/Meds Orders: Active Orders 24 hr Category Date Time Status Cardiac Monitoring [RC] . DIRECTED Care 03/17/19 15:32 Active EKG Documentation Completion [RC] STAT Care 03/17/19 15:33 Active Insert Urinary Catheter [OM.PC] Stat Care 03/17/19 15:30 Ordered Oxygen Therapy [RC] PRN Care 03/17/19 15:32 Active Peripheral IV Care [RC] . DIRECTED Care 03/17/19 15:33 Active Urinary Catheter Assessment [RC] ASDIRECTED Care 03/17/19 15:59 Active Abdomen Pelvis wo Cont [CT] Stat Exams 03/17/19 17:23 Taken Cervical Spine wo Cont [CT] Stat Exams 03/17/19 17:24 Taken Chest 1V Frontal [CR] Stat Exams 03/17/19 15:33 Taken Head wo Cont [CT] Stat Exams 03/17/19 15:36 Taken CULTURE BLOOD [BC] Stat Lab 03/17/19 16:50 Received CULTURE BLOOD [BC] Stat Lab 03/17/19 17:00 Received Sodium Chloride 0.9% [Normal Saline] 1,000 ml Med 03/17/19 15:45 Active IV ASDIRECTED Sodium Chloride 0.9% [Saline Flush] Med 03/17/19 15:32 Active 10 ml FLUSH ASDIRECTED PRN Blood Culture x2 Reflex Set [OM.PC] Stat Oth 03/17/19 15:33 Ordered Peripheral IV Insertion Adult [OM.PC] Stat Oth 03/17/19 15:32 Ordered Medication Orders Sodium Chloride (Normal Saline) 1,000 mls @ 125 mls/hr IV ASDIRECTED LAZARA Last Admin: 03/17/19 16:03 Dose: 125 mls/hr Sodium Chloride (Saline Flush) 10 ml FLUSH ASDIRECTED PRN PRN Reason: Keep Vein Open Last Admin: 03/17/19 16:03 Dose: 10 ml Labs: Laboratory Tests 03/17/19 03/17/19 03/17/19 Range/Units 15:21 15:25 15:25 WBC 18.79 H (3.98-10.04) K/mm3 RBC 4.90 (3.98-5.22) M/mm3 Hgb 14.5 D (11.2-15.7) gm/dl Hct 44.5 (34.1-44.9) % MCV 90.8 D (79.4-94.8) fl MCH 29.6 (25.6-32.2) pg MCHC 32.6 (32.2-35.5) g/dl RDW Std Deviation 41.7 (36.4-46.3) fL Plt Count 341 (182-369) K/mm3 MPV 10.6 (9.4-12.3) fl Neut % (Auto) 66.6 (34.0-71.1) % Lymph % (Auto) 26.6 (19.3-51.7) % [place] % (Auto) 5.6 (4.7-12.5) % Eos % (Auto) 0.6 L (0.7-5.8) Baso % (Auto) 0.2 (0.1-1.2) % Neut # (Auto) 12.51 H (1.56-6.13) K/mm3 Lymph # (Auto) 5.00 H (1.18-3.74) K/mm3 [place] # (Auto) 1.06 H (0.24-0.36) K/mm3 Eos # (Auto) 0.11 (0.04-0.36) K/mm3 Baso # (Auto) 0.04 (0.01-0.08) K/mm3 Sodium 138 (136-145) mEq/L Potassium 5.5 H (3.5-5.1) mEq/L Chloride 99 (98-107) mEq/L Carbon Dioxide 34 H (21-32) mEq/L Anion Gap 10.5 (5-15) BUN 26 H (7-18) mg/dL Creatinine 1.4 H (0.55-1.02) mg/dL Est Cr Clr Drug Dosing TNP Estimated GFR (MDRD) 36 (>60) mL/min BUN/Creatinine Ratio 18.6 H (14-18) Glucose 54 L (83-115) mg/dL POC Glucose 59 L (83-110) mg/dL Lactic Acid (0.4-2.0) mmol/L Calcium 9.6 D (8.5-10.1) mg/dL Magnesium 1.8 (1.8-2.4) mg/dl Total Bilirubin 0.7 (0.2-1.0) mg/dL AST 121 H (15-37) U/L ALT 66 H (14-59) U/L Alkaline Phosphatase 160 H (46-116) U/L Creatine Kinase (26-192) U/L Troponin I < 0.017 (0.00-0.056) ng/mL Total Protein 7.3 (6.4-8.2) g/dl Albumin 3.5 (3.4-5.0) g/dl Globulin 3.8 gm/dL Albumin/Globulin Ratio 0.9 L (1-2) Urine Color (Yellow) Urine Appearance (Clear) Urine pH (5.0-8.0) Ur Specific [place] (1.005-1.030) Urine Protein (Negative) Urine Glucose (UA) (Negative) Urine Ketones (Negative) Urine Occult Blood (Negative) Urine Nitrite (Negative) Urine Bilirubin (Negative) Urine Urobilinogen (0.2-1.0) Ur Leukocyte Esterase (Negative) Urine RBC (0-5) /hpf Urine WBC (0-5) /hpf Ur Squamous Epith Cells (0-5) /hpf Urine Bacteria (FEW) /hpf Urine Mucus (FEW) /hpf 03/17/19 03/17/19 03/17/19 Range/Units 15:25 15:25 15:34 WBC (3.98-10.04) K/mm3 RBC (3.98-5.22) M/mm3 Hgb (11.2-15.7) gm/dl Hct (34.1-44.9) % MCV (79.4-94.8) fl MCH (25.6-32.2) pg MCHC (32.2-35.5) g/dl RDW Std Deviation (36.4-46.3) fL Plt Count (182-369) K/mm3 MPV (9.4-12.3) fl Neut % (Auto) (34.0-71.1) % Lymph % (Auto) (19.3-51.7) % [place] % (Auto) (4.7-12.5) % Eos % (Auto) (0.7-5.8) Baso % (Auto) (0.1-1.2) % Neut # (Auto) (1.56-6.13) K/mm3 Lymph # (Auto) (1.18-3.74) K/mm3 [place] # (Auto) (0.24-0.36) K/mm3 Eos # (Auto) (0.04-0.36) K/mm3 Baso # (Auto) (0.01-0.08) K/mm3 Sodium (136-145) mEq/L Potassium (3.5-5.1) mEq/L Chloride (98-107) mEq/L Carbon Dioxide (21-32) mEq/L Anion Gap (5-15) BUN (7-18) mg/dL Creatinine (0.55-1.02) mg/dL Est Cr Clr Drug Dosing Estimated GFR (MDRD) (>60) mL/min BUN/Creatinine Ratio (14-18) Glucose (83-115) mg/dL POC Glucose (83-110) mg/dL Lactic Acid 2.0 (0.4-2.0) mmol/L Calcium (8.5-10.1) mg/dL Magnesium (1.8-2.4) mg/dl Total Bilirubin (0.2-1.0) mg/dL AST (15-37) U/L ALT (14-59) U/L Alkaline Phosphatase (46-116) U/L Creatine Kinase 173 (26-192) U/L Troponin I (0.00-0.056) ng/mL Total Protein (6.4-8.2) g/dl Albumin (3.4-5.0) g/dl Globulin gm/dL Albumin/Globulin Ratio (1-2) Urine Color [place] H (Yellow) Urine Appearance Slt cloudy H (Clear) Urine pH 6.5 (5.0-8.0) Ur Specific [place] 1.015 (1.005-1.030) Urine Protein Negative (Negative) Urine Glucose (UA) Negative (Negative) Urine Ketones Negative (Negative) Urine Occult Blood 3+ H (Negative) Urine Nitrite Negative (Negative) Urine Bilirubin Negative (Negative) Urine Urobilinogen 0.2 (0.2-1.0) Ur Leukocyte Esterase 1+ H (Negative) Urine RBC >100 H (0-5) /hpf Urine WBC 5-10 H (0-5) /hpf Ur Squamous Epith Cells 0-5 (0-5) /hpf Urine Bacteria Rare (FEW) /hpf Urine Mucus Not seen (FEW) /hpf 03/17/19 Range/Units 16:04 WBC (3.98-10.04) K/mm3 RBC (3.98-5.22) M/mm3 Hgb (11.2-15.7) gm/dl Hct (34.1-44.9) % MCV (79.4-94.8) fl MCH (25.6-32.2) pg MCHC (32.2-35.5) g/dl RDW Std Deviation (36.4-46.3) fL Plt Count (182-369) K/mm3 MPV (9.4-12.3) fl Neut % (Auto) (34.0-71.1) % Lymph % (Auto) (19.3-51.7) % [place] % (Auto) (4.7-12.5) % Eos % (Auto) (0.7-5.8) Baso % (Auto) (0.1-1.2) % Neut # (Auto) (1.56-6.13) K/mm3 Lymph # (Auto) (1.18-3.74) K/mm3 [place] # (Auto) (0.24-0.36) K/mm3 Eos # (Auto) (0.04-0.36) K/mm3 Baso # (Auto) (0.01-0.08) K/mm3 Sodium (136-145) mEq/L Potassium (3.5-5.1) mEq/L Chloride (98-107) mEq/L Carbon Dioxide (21-32) mEq/L Anion Gap (5-15) BUN (7-18) mg/dL Creatinine (0.55-1.02) mg/dL Est Cr Clr Drug Dosing Estimated GFR (MDRD) (>60) mL/min BUN/Creatinine Ratio (14-18) Glucose (83-115) mg/dL POC Glucose 203 H (83-110) mg/dL Lactic Acid (0.4-2.0) mmol/L Calcium (8.5-10.1) mg/dL Magnesium (1.8-2.4) mg/dl Total Bilirubin (0.2-1.0) mg/dL AST (15-37) U/L ALT (14-59) U/L Alkaline Phosphatase (46-116) U/L Creatine Kinase (26-192) U/L Troponin I (0.00-0.056) ng/mL Total Protein (6.4-8.2) g/dl Albumin (3.4-5.0) g/dl Globulin gm/dL Albumin/Globulin Ratio (1-2) Urine Color (Yellow) Urine Appearance (Clear) Urine pH (5.0-8.0) Ur Specific [place] (1.005-1.030) Urine Protein (Negative) Urine Glucose (UA) (Negative) Urine Ketones (Negative) Urine Occult Blood (Negative) Urine Nitrite (Negative) Urine Bilirubin (Negative) Urine Urobilinogen (0.2-1.0) Ur Leukocyte Esterase (Negative) Urine RBC (0-5) /hpf Urine WBC (0-5) /hpf Ur Squamous Epith Cells (0-5) /hpf Urine Bacteria (FEW) /hpf Urine Mucus (FEW) /hpf Meds: Medications Generic Name Dose Route Start Last Admin Trade Name Freq PRN Reason Stop Dose Admin Sodium Chloride 1,000 mls @ 125 mls/hr 03/17/19 15:45 03/17/19 16:03 Normal Saline IV 125 mls/hr ASDIRECTED LAZARA Administration Sodium Chloride 10 ml 03/17/19 15:32 03/17/19 16:03 Saline Flush FLUSH 10 ml ASDIRECTED PRN Administration Keep Vein Open Discontinued Medications Generic Name Dose Route Start Last Admin Trade Name Freq PRN Reason Stop Dose Admin Dextrose/Water Confirm 03/17/19 15:22 03/17/19 16:02 Dextrose 50% In Water Administered 03/17/19 15:23 Not Given Dose 50 ml .ROUTE .STK-MED ONE Dextrose/Water 50 ml 03/17/19 15:27 03/17/19 15:27 Dextrose 50% In Water IVPUSH 03/17/19 15:28 50 ml ASDIRECTED ONE Administration - Re-Assessments/Exams Free Text/Narrative Re-Assessment/Exam: 03/17/19 17:25 I ordered an IV warm NS at 125mL/hr, labs, UA, EKG, CT of her head, bear hugger , and 25 grams of D50 IV. Her blood sugar did come up to 203 and she is more alert. Her EKG shows NSR with no acute changes. The CT of her head shows no acute intracranial process. Her WBC was elevated at 19.79. Her K was elevated at 5.5. Her creatinine was elevated at 1.4. Her BUN/creatinine ratio was elevated at 18.6. Her lactic acid is normal at 2. Her AST is elevated at 121. Her ALT is elevated at 66. Her Alk Phos is elevated at 160. Her CK is normal at 173. Her troponin is negative. Her UA shows blood but no UTI. She is making more sense now. She says she is on cipro daily to help avoid UTIs. She has been having diarrhea lately. In the past she had diarrhea and she then had C-dif. She says one time her blood sugar did drop. This morning she did have some juice but nothing else. She remembers going to her sons and dropping off some laundry and then falling. I examined her again and she has some neck pain still and some lower abdominal pain. I have ordered a CT of her neck and abdomen and pelvis without oral or IV contrast. 03/17/19 18:[address] of her cervical spine shows no acute fracture or dislocation. The CT of her abdomen and pelvis shows no acute findings and no evidence to explain hematuria. I feel she needs to be admitted. Her Temp is only up to [address] Martinez and he agreed to the admission. We talked about starting an antibiotic but at this time we do not have a source for any infection. We will hold off until her cultures come back. Departure - Departure Time of Disposition: 18:40 Disposition: Refer to Observation Condition: Fair Clinical Impression: Hypoglycemia, Skin tear of right upper extremity, Multiple contusions Hypothermia Qualifiers: Encounter type: initial encounter Qualified Code(s): T68.XXXA - Hypothermia, initial encounter Fall Qualifiers: Encounter type: initial encounter Qualified Code(s): W19.XXXA - Unspecified fall, initial encounter Contusion of forehead Qualifiers: Encounter type: initial encounter Qualified Code(s): S00.83XA - Contusion of other part of head, initial encounter Skin tear of left hand without complication Qualifiers: Encounter type: initial encounter Qualified Code(s): S61.412A - Laceration without foreign body of left hand, initial encounter - Discharge Information Referrals: PCP,Unknown [Primary Care Provider] - Forms: ED Department Discharge - My Orders Last 24 Hours: My Active Orders 03/17/19 15:30 Insert Urinary Catheter [OM.PC] Stat 03/17/19 15:32 Cardiac Monitoring [RC] . DIRECTED Oxygen Therapy [RC] PRN Sodium Chloride 0.9% [Saline Flush] 10 ml FLUSH ASDIRECTED PRN Peripheral IV Insertion Adult [OM.PC] Stat 03/17/19 15:33 EKG Documentation Completion [RC] STAT Peripheral IV Care [RC] . DIRECTED Chest 1V Frontal [CR] Stat Blood Culture x2 Reflex Set [OM.PC] Stat 03/17/19 15:36 Head wo Cont [CT] Stat 03/17/19 15:45 Sodium Chloride 0.9% [Normal Saline] 1,000 ml IV ASDIRECTED 03/17/19 15:59 Urinary Catheter Assessment [RC] ASDIRECTED 03/17/19 16:50 CULTURE BLOOD [BC] Stat 03/17/19 17:00 CULTURE BLOOD [BC] Stat 03/17/19 17:23 Abdomen Pelvis wo Cont [CT] Stat 03/17/19 17:24 Cervical Spine wo Cont [CT] Stat - Assessment/Plan Last 24 Hours: My Active Orders 03/17/19 15:30 Insert Urinary Catheter [OM.PC] Stat 03/17/19 15:32 Cardiac Monitoring [RC] . DIRECTED Oxygen Therapy [RC] PRN Sodium Chloride 0.9% [Saline Flush] 10 ml FLUSH ASDIRECTED PRN Peripheral IV Insertion Adult [OM.PC] Stat 03/17/19 15:33 EKG Documentation Completion [RC] STAT Peripheral IV Care [RC] . DIRECTED Chest 1V Frontal [CR] Stat Blood Culture x2 Reflex Set [OM.PC] Stat 03/17/19 15:36 Head wo Cont [CT] Stat 03/17/19 15:45 Sodium Chloride 0.9% [Normal Saline] 1,000 ml IV ASDIRECTED 03/17/19 15:59 Urinary Catheter Assessment [RC] ASDIRECTED 03/17/19 16:50 CULTURE BLOOD [BC] Stat 03/17/19 17:00 CULTURE BLOOD [BC] Stat 03/17/19 17:23 Abdomen Pelvis wo Cont [CT] Stat 03/17/19 17:24 Cervical Spine wo Cont [CT] Stat
[2019-03-17] MEDS ORDERED: Ondansetron 4 MG/2 ML SDV IV PRN (21:04)
[2019-03-17] MEDS ORDERED: Acetaminophen 325 MG Tab PO PRN (21:04)
--- NOTE | 2019-03-17 21:23 | PCM.HP.2 ---
H&P History of Present Illness - General Date of Service: 03/17/19 Admit Problem/Dx: Admission Diagnosis/Problem Admission Diagnosis/Problem Hypothermia - History of Present Illness Initial Comments - Free Text/Narative: 78-year-old female with insulin-dependent diabetes was brought in by [facility] for confusion. Patient was at her son's house putting away laundry and had a syncopal episode. Patient states that she was walking up and down stairs and brought in from her car 6 loads of laundry. That morning her fasting blood sugar was 90 and she had a large orange juice but no breakfast. She thought that he would be enough for her to get back home and have breakfast. Patient appears to have hit her head on the floor and wasn't found for 4-5 hours when her [id number] returned from work. She was confused and cold and when EMS arrived her blood sugar was 56 and her rectal temperature was 88.. Patient was given 25 g of D50 and warmed in the emergency room. Patient's confusion slowly lifted and she had a CT of her head, cervical spine, abdomen and pelvis without contrast. All were negative for acute findings. Patient was also found to have hematuria but no significant signs of urinary infection. She is on aspirin and clopidogrel. Chest x-ray was also done which was negative for infection. Initial labs: WBC 18.79, hemoglobin 14.5, platelets 341, sodium 138, elevated potassium of 5.5, BUN 26, creatinine 1.4, lactic acid 2.0, AST 121, ALT 66, alkaline phosphatase 160, creatinine kinase 173, troponin I less than 0.017. UA RBC greater than 100, WBC 5-10, squamous epithelial cells and 0-5, bacteria rare. Patient is on Cipro for prophylactic UTIs. She does have loose stools so a C. difficile toxin was performed on loose stools and was negative. EKG normal sinus rhythm with ventricular rate 51 bpm. - Related Data Allergies/Adverse Reactions: Allergies Allergy/AdvReac Type Severity Reaction Status Date / Time No Known Allergies Allergy Verified 03/17/19 16:27 Home Medications: Home Meds Acetaminophen/Codeine [Tylenol with Codeine No.3 300MG/30MG] 1 tab PO Q4H PRN [History] Amylase/Lipase/Protease [Cathy HIDALGO 24,000 Unit] 1 tab PO TID 12/27/13 [History] Insulin Aspart [NovoLOG] 0 units SQ ASDIRECTED 12/27/13 [History] Lisinopril 2.5 mg PO DAILY 12/27/13 [History] Spironolactone [Aldactone] 25 mg PO DAILY 12/27/13 [History] diphenhydrAMINE [Benadryl] 50 mg PO BEDTIME 12/27/13 [History] Ca Carbonate/Vitamin D3/Vit K [Calcium + D Soft Chewable Tab] 1 tab PO BID 09/30 [History] Cholecalciferol (Vitamin D3) [Vitamin D3] 5,000 units PO DAILY 09/30/16 [History ] Denosumab [Prolia] 1 injection SQ ASDIRECTED 09/30/16 [History] Furosemide [Lasix] 40 mg PO BID 09/30/16 [History] Carvedilol 6.25 mg PO BID 02/12/18 [History] Cyanocobalamin (Vitamin B-12) [Vitamin B-12] 1,000 mcg PO DAILY 02/12/18 [ History] Insulin Glargine,Hum.Rec.Anlog [Basaglar Kwikpen U-100] 22 units SQ DAILY [History] Leg Cramp Relief 2 tab PO BID 02/12/18 [History] Magnesium Gluconate [Magonate] 2 tab PO TID 02/12/18 [History] Potassium 99 mg PO DAILY 02/12/18 [History] Rosuvastatin [Crestor] 5 mg PO DAILY 02/12/18 [History] Clopidogrel [Plavix] 75 mg PO DAILY 02/13/18 [History] Pantoprazole Sodium [Protonix] 20 mg PO DAILY 12/15/18 [History] Acetaminophen [Tylenol] 650 mg PO Q6H 03/17/19 [History] Aspirin 81 mg PO DAILY 03/17/19 [History] Ciprofloxacin [Ciprofloxacin HCl] 250 mg PO DAILY 03/17/19 [History] Levothyroxine 112 mcg PO DAILY 03/17/19 [History] Past Medical History HEENT History: Reports: Impaired Vision, Other (See Below) Other HEENT History: has upper denture and lower partial, wears glasses Cardiovascular History: Reports: Hypertension, Stents Other Cardiovascular History: peripheral arteriosclerosis, PAD Respiratory History: Reports: None Gastrointestinal History: Reports: GERD Other Gastrointestinal History: chronic liver disease, pancreatitis, pancreatic surgery, steatohepatitis, excision of pancreatic cyst, liver biopsy Other Genitourinary History: CKD III, dysuria, hematuria, UTI [employer] History: Reports: Other OB/BYN History: atrophic vaginitis Musculoskeletal History: Reports: Osteoarthritis, Osteoporosis Other Musculoskeletal History: R elbow pain, degenration of mid cerical disc, arthritis of c spine, polyarthritis, R wrist injury Neurological History: Reports: None Psychiatric History: Reports: None Endocrine/Metabolic History: Reports: Diabetes, Type II, Hypothyroidism, Vitamin D Deficiency Hematologic History: Reports: Other (See Below) Other Hematologic History: calcium deficiency, hypomagnesia Immunologic History: Reports: None Oncologic (Cancer) History: Reports: None Dermatologic History: Reports: None - Past Surgical History Head Surgeries/Procedures: Reports: None HEENT Surgical History: Reports: LASIK, Oral Surgery Respiratory Surgical History: Reports: None GI Surgical History: Reports: Appendectomy, Cholecystectomy Female Surgical History: Reports: Hysterectomy, Tubal Ligation Endocrine Surgical History: Reports: None Neurological Surgical History: Reports: None Other Musculoskeletal Surgeries/Procedures:: Right rotator cuff repair, bilateral carpal tunnel release Oncologic Surgical History: Reports: None Social & Family History - Tobacco Use Smoking Status *Q: Unknown Ever Smoked - Caffeine Use Caffeine Use: Reports: Other Caffeine Use Comment: Unable to obtain due to AMS. H&P Review of Systems - Review of Systems: Review Of Systems: ROS reveals no pertinent complaints other than HPI. Exam - Exam Exam: See Below - Vital Signs Vital Signs: Last Vital Signs Temp 88.3 F L 03/17/19 15:38 Pulse 58 L 03/17/19 15:38 Resp 16 03/17/19 15:38 BP 136/119 H 03/17/19 15:38 Pulse Ox 100 03/17/19 15:38 Weight: 130 lb - Exam Quality Assessment: No: Supplemental Oxygen General: Alert, Oriented, 4 HEENT: Conjunctiva Clear, EOMI, Hearing Intact, Mucosa Moist & [place], Nares Patent, Normal Nasal Septum, Other (Bruising on left forehead) Neck: Supple, Trachea Midline, 2 Lungs: Normal Respiratory Effort, Rales (Slight bibasilar Rales) GI/Abdominal Exam: Normal Bowel Sounds, Soft, Non-Tender, No Organomegaly, No Distention, No Abnormal Bruit, No Mass, Pelvis Stable Extremities: Normal Inspection, Normal Range of Motion, No Pedal Edema, Normal Capillary Refill, Other (Bruising on left shoulder and hand) Neurological: Cranial Nerves Intact, Reflexes Equal Bilateral Psychiatric: Alert, Normal Affect, Normal Mood - Patient Data Lab Results Last 24 hrs: Laboratory Results - last 24 hr 03/17/19 03/17/19 03/17/19 Range/Units 15:21 15:25 15:25 WBC 18.79 H (3.98-10.04) K/mm3 RBC 4.90 (3.98-5.22) M/mm3 Hgb 14.5 D (11.2-15.7) gm/dl Hct 44.5 (34.1-44.9) % MCV 90.8 D (79.4-94.8) fl MCH 29.6 (25.6-32.2) pg MCHC 32.6 (32.2-35.5) g/dl RDW Std Deviation 41.7 (36.4-46.3) fL Plt Count 341 (182-369) K/mm3 MPV 10.6 (9.4-12.3) fl Neut % (Auto) 66.6 (34.0-71.1) % Lymph % (Auto) 26.6 (19.3-51.7) % [place] % (Auto) 5.6 (4.7-12.5) % Eos % (Auto) 0.6 L (0.7-5.8) Baso % (Auto) 0.2 (0.1-1.2) % Neut # (Auto) 12.51 H (1.56-6.13) K/mm3 Lymph # (Auto) 5.00 H (1.18-3.74) K/mm3 [place] # (Auto) 1.06 H (0.24-0.36) K/mm3 Eos # (Auto) 0.11 (0.04-0.36) K/mm3 Baso # (Auto) 0.04 (0.01-0.08) K/mm3 Sodium 138 (136-145) mEq/L Potassium 5.5 H (3.5-5.1) mEq/L Chloride 99 (98-107) mEq/L Carbon Dioxide 34 H (21-32) mEq/L Anion Gap 10.5 (5-15) BUN 26 H (7-18) mg/dL Creatinine 1.4 H (0.55-1.02) mg/dL Est Cr Clr Drug Dosing TNP Estimated GFR (MDRD) 36 (>60) mL/min BUN/Creatinine Ratio 18.6 H (14-18) Glucose 54 L (83-115) mg/dL POC Glucose 59 L (83-110) mg/dL Lactic Acid (0.4-2.0) mmol/L Calcium 9.6 D (8.5-10.1) mg/dL Magnesium 1.8 (1.8-2.4) mg/dl Total Bilirubin 0.7 (0.2-1.0) mg/dL AST 121 H (15-37) U/L ALT 66 H (14-59) U/L Alkaline Phosphatase 160 H (46-116) U/L Creatine Kinase (26-192) U/L Troponin I < 0.017 (0.00-0.056) ng/mL Total Protein 7.3 (6.4-8.2) g/dl Albumin 3.5 (3.4-5.0) g/dl Globulin 3.8 gm/dL Albumin/Globulin Ratio 0.9 L (1-2) Urine Color (Yellow) Urine Appearance (Clear) Urine pH (5.0-8.0) Ur Specific [place] (1.005-1.030) Urine Protein (Negative) Urine Glucose (UA) (Negative) Urine Ketones (Negative) Urine Occult Blood (Negative) Urine Nitrite (Negative) Urine Bilirubin (Negative) Urine Urobilinogen (0.2-1.0) Ur Leukocyte Esterase (Negative) Urine RBC (0-5) /hpf Urine WBC (0-5) /hpf Ur Squamous Epith Cells (0-5) /hpf Urine Bacteria (FEW) /hpf Urine Mucus (FEW) /hpf C.difficile 027-NAP1-B1 C. difficile Tox (PCR) 03/17/19 03/17/19 03/17/19 Range/Units 15:25 15:25 15:34 WBC (3.98-10.04) K/mm3 RBC (3.98-5.22) M/mm3 Hgb (11.2-15.7) gm/dl Hct (34.1-44.9) % MCV (79.4-94.8) fl MCH (25.6-32.2) pg MCHC (32.2-35.5) g/dl RDW Std Deviation (36.4-46.3) fL Plt Count (182-369) K/mm3 MPV (9.4-12.3) fl Neut % (Auto) (34.0-71.1) % Lymph % (Auto) (19.3-51.7) % [place] % (Auto) (4.7-12.5) % Eos % (Auto) (0.7-5.8) Baso % (Auto) (0.1-1.2) % Neut # (Auto) (1.56-6.13) K/mm3 Lymph # (Auto) (1.18-3.74) K/mm3 [place] # (Auto) (0.24-0.36) K/mm3 Eos # (Auto) (0.04-0.36) K/mm3 Baso # (Auto) (0.01-0.08) K/mm3 Sodium (136-145) mEq/L Potassium (3.5-5.1) mEq/L Chloride (98-107) mEq/L Carbon Dioxide (21-32) mEq/L Anion Gap (5-15) BUN (7-18) mg/dL Creatinine (0.55-1.02) mg/dL Est Cr Clr Drug Dosing Estimated GFR (MDRD) (>60) mL/min BUN/Creatinine Ratio (14-18) Glucose (83-115) mg/dL POC Glucose (83-110) mg/dL Lactic Acid 2.0 (0.4-2.0) mmol/L Calcium (8.5-10.1) mg/dL Magnesium (1.8-2.4) mg/dl Total Bilirubin (0.2-1.0) mg/dL AST (15-37) U/L ALT (14-59) U/L Alkaline Phosphatase (46-116) U/L Creatine Kinase 173 (26-192) U/L Troponin I (0.00-0.056) ng/mL Total Protein (6.4-8.2) g/dl Albumin (3.4-5.0) g/dl Globulin gm/dL Albumin/Globulin Ratio (1-2) Urine Color [place] H (Yellow) Urine Appearance Slt cloudy H (Clear) Urine pH 6.5 (5.0-8.0) Ur Specific [place] 1.015 (1.005-1.030) Urine Protein Negative (Negative) Urine Glucose (UA) Negative (Negative) Urine Ketones Negative (Negative) Urine Occult Blood 3+ H (Negative) Urine Nitrite Negative (Negative) Urine Bilirubin Negative (Negative) Urine Urobilinogen 0.2 (0.2-1.0) Ur Leukocyte Esterase 1+ H (Negative) Urine RBC >100 H (0-5) /hpf Urine WBC 5-10 H (0-5) /hpf Ur Squamous Epith Cells 0-5 (0-5) /hpf Urine Bacteria Rare (FEW) /hpf Urine Mucus Not seen (FEW) /hpf C.difficile 027-NAP1-B1 C. difficile Tox (PCR) 03/17/19 03/17/19 03/17/19 Range/Units 16:04 17:39 19:00 WBC (3.98-10.04) K/mm3 RBC (3.98-5.22) M/mm3 Hgb (11.2-15.7) gm/dl Hct (34.1-44.9) % MCV (79.4-94.8) fl MCH (25.6-32.2) pg MCHC (32.2-35.5) g/dl RDW Std Deviation (36.4-46.3) fL Plt Count (182-369) K/mm3 MPV (9.4-12.3) fl Neut % (Auto) (34.0-71.1) % Lymph % (Auto) (19.3-51.7) % [place] % (Auto) (4.7-12.5) % Eos % (Auto) (0.7-5.8) Baso % (Auto) (0.1-1.2) % Neut # (Auto) (1.56-6.13) K/mm3 Lymph # (Auto) (1.18-3.74) K/mm3 [place] # (Auto) (0.24-0.36) K/mm3 Eos # (Auto) (0.04-0.36) K/mm3 Baso # (Auto) (0.01-0.08) K/mm3 Sodium (136-145) mEq/L Potassium (3.5-5.1) mEq/L Chloride (98-107) mEq/L Carbon Dioxide (21-32) mEq/L Anion Gap (5-15) BUN (7-18) mg/dL Creatinine (0.55-1.02) mg/dL Est Cr Clr Drug Dosing Estimated GFR (MDRD) (>60) mL/min BUN/Creatinine Ratio (14-18) Glucose (83-115) mg/dL POC Glucose 203 H 107 (83-110) mg/dL Lactic Acid (0.4-2.0) mmol/L Calcium (8.5-10.1) mg/dL Magnesium (1.8-2.4) mg/dl Total Bilirubin (0.2-1.0) mg/dL AST (15-37) U/L ALT (14-59) U/L Alkaline Phosphatase (46-116) U/L Creatine Kinase (26-192) U/L Troponin I (0.00-0.056) ng/mL Total Protein (6.4-8.2) g/dl Albumin (3.4-5.0) g/dl Globulin gm/dL Albumin/Globulin Ratio (1-2) Urine Color (Yellow) Urine Appearance (Clear) Urine pH (5.0-8.0) Ur Specific [place] (1.005-1.030) Urine Protein (Negative) Urine Glucose (UA) (Negative) Urine Ketones (Negative) Urine Occult Blood (Negative) Urine Nitrite (Negative) Urine Bilirubin (Negative) Urine Urobilinogen (0.2-1.0) Ur Leukocyte Esterase (Negative) Urine RBC (0-5) /hpf Urine WBC (0-5) /hpf Ur Squamous Epith Cells (0-5) /hpf Urine Bacteria (FEW) /hpf Urine Mucus (FEW) /hpf C.difficile 027-NAP1-B1 Presumptive negative C. difficile Tox (PCR) Negative 03/17/19 03/17/19 Range/Units 20:03 20:43 WBC (3.98-10.04) K/mm3 RBC (3.98-5.22) M/mm3 Hgb (11.2-15.7) gm/dl Hct (34.1-44.9) % MCV (79.4-94.8) fl MCH (25.6-32.2) pg MCHC (32.2-35.5) g/dl RDW Std Deviation (36.4-46.3) fL Plt Count (182-369) K/mm3 MPV (9.4-12.3) fl Neut % (Auto) (34.0-71.1) % Lymph % (Auto) (19.3-51.7) % [place] % (Auto) (4.7-12.5) % Eos % (Auto) (0.7-5.8) Baso % (Auto) (0.1-1.2) % Neut # (Auto) (1.56-6.13) K/mm3 Lymph # (Auto) (1.18-3.74) K/mm3 [place] # (Auto) (0.24-0.36) K/mm3 Eos # (Auto) (0.04-0.36) K/mm3 Baso # (Auto) (0.01-0.08) K/mm3 Sodium (136-145) mEq/L Potassium (3.5-5.1) mEq/L Chloride (98-107) mEq/L Carbon Dioxide (21-32) mEq/L Anion Gap (5-15) BUN (7-18) mg/dL Creatinine (0.55-1.02) mg/dL Est Cr Clr Drug Dosing Estimated GFR (MDRD) (>60) mL/min BUN/Creatinine Ratio (14-18) Glucose (83-115) mg/dL POC Glucose 213 H 192 H (83-110) mg/dL Lactic Acid (0.4-2.0) mmol/L Calcium (8.5-10.1) mg/dL Magnesium (1.8-2.4) mg/dl Total Bilirubin (0.2-1.0) mg/dL AST (15-37) U/L ALT (14-59) U/L Alkaline Phosphatase (46-116) U/L Creatine Kinase (26-192) U/L Troponin I (0.00-0.056) ng/mL Total Protein (6.4-8.2) g/dl Albumin (3.4-5.0) g/dl Globulin gm/dL Albumin/Globulin Ratio (1-2) Urine Color (Yellow) Urine Appearance (Clear) Urine pH (5.0-8.0) Ur Specific [place] (1.005-1.030) Urine Protein (Negative) Urine Glucose (UA) (Negative) Urine Ketones (Negative) Urine Occult Blood (Negative) Urine Nitrite (Negative) Urine Bilirubin (Negative) Urine Urobilinogen (0.2-1.0) Ur Leukocyte Esterase (Negative) Urine RBC (0-5) /hpf Urine WBC (0-5) /hpf Ur Squamous Epith Cells (0-5) /hpf Urine Bacteria (FEW) /hpf Urine Mucus (FEW) /hpf C.difficile 027-NAP1-B1 C. difficile Tox (PCR) Result Diagrams: 03/17/19 15:25 03/17/19 15:25 Problem List Initiated/Reviewed/Updated: Yes Orders Last 24hrs: Active Orders 24 hr Category Date Time Status Admission Status [Patient Status] [ADT] Routine ADT 03/17/19 18:46 Active Antiembolic Devices [RC] PER UNIT ROUTINE Care 03/17/19 21:08 Ordered Blood Glucose Check, Bedside [RC] QIDACANDBED Care 03/17/19 21:14 Ordered Cardiac Monitoring [RC] . DIRECTED Care 03/17/19 15:32 Active EKG Documentation Completion [RC] STAT Care 03/17/19 15:33 Active Insert Urinary Catheter [OM.PC] Stat Care 03/17/19 15:30 Ordered Oxygen Therapy [RC] PRN Care 03/17/19 15:32 Active Peripheral IV Care [RC] . DIRECTED Care 03/17/19 15:33 Active Up ad Rachael [RC] ASDIRECTED Care 03/17/19 21:04 Ordered Urinary Catheter Assessment [RC] ASDIRECTED Care 03/17/19 15:59 Active VTE/DVT Education [RC] PER UNIT ROUTINE Care 03/17/19 21:04 Ordered Vital Signs [RC] Q4H Care 03/17/19 21:04 Ordered [employer] Diet [DIET] Diet 03/17/19 Dinner Ordered Abdomen Pelvis wo Cont [CT] Stat Exams 03/17/19 17:23 Taken Cervical Spine wo Cont [CT] Stat Exams 03/17/19 17:24 Taken Chest 1V Frontal [CR] Stat Exams 03/17/19 15:33 Taken Head wo Cont [CT] Stat Exams 03/17/19 15:36 Taken CBC WITH AUTO DIFF [HEME] AM Lab 03/18/19 05:11 Ordered COMPREHENSIVE METABOLIC PN,CMP [CHEM] AM Lab 03/18/19 05:11 Ordered CULTURE BLOOD [BC] Stat Lab 03/17/19 16:50 Received CULTURE BLOOD [BC] Stat Lab 03/17/19 17:00 Received MAGNESIUM [CHEM] AM Lab 03/18/19 05:11 Ordered Acetaminophen [Tylenol] Med 03/17/19 21:04 Ordered 650 mg PO Q4H PRN Carvedilol [Coreg] Med 03/18/19 09:00 Ordered 6.25 mg PO BID Clopidogrel [Plavix] Med 03/18/19 09:00 Ordered 75 mg PO DAILY Furosemide [Lasix] Med 03/18/19 09:00 Ordered 40 mg PO BID Insulin Glarg,Human.Rec.Analog [LantUS] Med 03/17/19 21:30 Ordered 10 unit SUBCUT Q24H Insulin Lispro [HumaLOG] Med 03/17/19 22:00 Ordered See Protocol SUBCUT QIDACANDBED Levothyroxine Med 03/18/19 09:00 Ordered 112 mcg PO DAILY Ondansetron [Zofran] Med 03/17/19 21:04 Ordered 4 mg IV Q4H PRN Pantoprazole Sodium [Protonix] Med 03/18/19 09:00 Ordered 20 mg PO DAILY Rosuvastatin Med 03/18/19 09:00 Ordered 5 mg PO DAILY Sodium Chloride 0.9% [Normal Saline] 1,000 ml Med 03/17/19 15:45 Active IV ASDIRECTED Sodium Chloride 0.9% [Saline Flush] Med 03/17/19 15:32 Active 10 ml FLUSH ASDIRECTED PRN Sodium Chloride 0.9% [Saline Flush] Med 03/17/19 21:04 Ordered 10 ml FLUSH ASDIRECTED PRN Blood Culture x2 Reflex Set [OM.PC] Stat Oth 03/17/19 15:33 Ordered Convert IV to Saline Lock [OM.PC] Routine Oth 03/17/19 21:04 Ordered Peripheral IV Insertion Adult [OM.PC] Stat Oth 03/17/19 15:32 Ordered Sequential Compression Device [OM.PC] Per Unit Routine Oth 03/17/19 21:05 Ordered Resuscitation Status Routine Resus Stat 03/17/19 21:04 Ordered Medication Orders Acetaminophen (Tylenol) 650 mg PO Q4H PRN PRN Reason: Pain (Mild 1-3)/fever Carvedilol (Coreg) 6.25 mg PO BID [facility] Clopidogrel Bisulfate (Plavix) 75 mg PO DAILY LAZARA Furosemide (Lasix) 40 mg PO BID LAZARA Sodium Chloride (Normal Saline) 1,000 mls @ 125 mls/hr IV ASDIRECTED LAZARA Last Admin: 03/17/19 16:03 Dose: 125 mls/hr Insulin Glargine (Lantus) 10 unit SUBCUT Q24H LAZARA Insulin Human Lispro (Humalog) 0 unit SUBCUT QIDACANDBED LAZARA; Protocol Levothyroxine Sodium (Levothyroxine) 112 mcg PO DAILY [facility] Non-Formulary Medication (Pantoprazole Sodium [Protonix]) 20 mg PO DAILY [facility]ZARA Non-Formulary Medication (Rosuvastatin) 5 mg PO DAILY [facility] Ondansetron HCl (Zofran) 4 mg IV Q4H PRN PRN Reason: Nausea/Vomiting Sodium Chloride (Saline Flush) 10 ml FLUSH ASDIRECTED PRN PRN Reason: Keep Vein Open Last Admin: 03/17/19 16:03 Dose: 10 ml Sodium Chloride (Saline Flush) 10 ml FLUSH ASDIRECTED PRN PRN Reason: Keep Vein Open Assessment/Plan Comment:: Assessment * 78-year-old female with insulin-dependent diabetes referred for observation secondary to syncope * Syncope likely secondary to hypoglycemia * Leukocytosis likely stress reaction * Hyperkalemia likely secondary to dehydration * Stage III chronic renal insufficiency?stable * History of chronic urinary tract infections * Hematuria - patient did have catheterization and is on dual antiplatelet therapy with aspirin and Plavix. She had a negative CT of the abdomen and pelvis without contrast * History of CHF Plan * For observation * Monitor on telemetry * Fingerstick blood sugars every before meals, daily at bedtime, and ocular morning * insulin glargine which will be at approximately 50% of home dose * Given fluid bolus and maintenance fluids in the emergency room. Will saline lock now so she does not develop fluid overload. * Monitor CBC, CMP, and magnesium * Hold lisinopril and spironolactone, also hold aspirin and Plavix secondary to hematuria. * Restart other home meds. * No nonsteroidal anti-inflammatories secondary to renal deficiency and hematuria * Tylenol for pain. * VTE prophylaxis with SCDs. No chemoprophylaxis secondary to hematuria * CODE STATUS: DNR/DNI * Anticipate discharge in the morning. - Mortality Measure Prognosis:: Good
[2019-03-17] MEDS ORDERED: Insulin Glarg,Human.Rec.Analog 100 UNIT/ML ML SUBCUT SCH (21:30)
[2019-03-17] MEDS: Insulin Lispro 100 Units/ML 3 ML Vial SUBCUT SCH (22:02)
[2019-03-17] MEDS ORDERED: diphenhydrAMINE 25 MG Cap PO PRN ×2 (22:29→22:30)
[2019-03-18] MEDS: Furosemide 40 MG Tab PO SCH ×2 (06:44→13:24)
[2019-03-18] MEDS ORDERED: Pantoprazole 40 MG Tab.CR PO SCH (07:00)
--- NOTE | 2019-03-18 07:38 | CT ---
Head CT Technique: Multiple axial sections through the brain were obtained. Intravenous contrast was not utilized. Findings: Ventricles along with basal cisterns and sulci over the convexities are mildly prominent. Areas of diminished density are noted within the periventricular white matter which is most likely due to small vessel ischemic demyelination change. No other abnormal parenchymal densities are seen. No evidence of intracranial hemorrhage. No midline shift or mass effect is seen. Mastoid sinuses show minimal mucosal thickening on the right side. Opacified right sphenoid sinus is noted. No acute calvarial abnormality is appreciated. Slight soft tissue swelling is seen within the frontal scalp. Impression: 1. Sinus findings which appear to be chronic. 2. No acute intracranial abnormality is identified. 3. Senescent change and mild soft tissue swelling within the frontal scalp. Diagnostic code #2 I agree with preliminary report from [facility], finalized on 03/17/19, 5:13 PM Central Time
[2019-03-18] MEDS: Insulin Lispro 100 Units/ML 3 ML Vial SUBCUT SCH ×2 (07:43→12:58)
[2019-03-18] MEDS ORDERED: Magnesium Sulfate/Water 4 GM in Premix Bag 1 BAG IV ONE (08:00)
[2019-03-18] MEDS ORDERED: Clopidogrel 75 MG Tab PO SCH (09:00)
[2019-03-18] MEDS ORDERED: Carvedilol 6.25 MG Tab PO SCH (09:00)
[2019-03-18] MEDS ORDERED: Levothyroxine 112 MCG Tab PO SCH (09:00)
[2019-03-18] MEDS ORDERED: Rosuvastatin 10 MG Tab PO SCH (09:00)
[2019-03-18 11:21] LABS: HEMOGLOBIN A1C 7.5 % (4.50-6.20)
[2019-03-18 12:02] VITALS: BP 101/51; PULSE 77
--- NOTE | 2019-03-18 13:21 | PCM.DCSUM1 ---
Discharge Summary - Hospital Course Brief History: 78-year-old female with insulin-dependent diabetes was brought in by [facility] for confusion. Patient was at her son's house putting away laundry and had a syncopal episode. Patient states that she was walking up and down stairs and brought in from her car 6 loads of laundry. That morning her fasting blood sugar was 90 and she had a large orange juice but no breakfast. She thought that he would be enough for her to get back home and have breakfast. Patient appears to have hit her head on the floor and wasn't found for 4-5 hours when her [id number] returned from work. She was confused and cold and when EMS arrived her blood sugar was 56 and her rectal temperature was 88.. Patient was given 25 g of D50 and warmed in the emergency room. Patient's confusion slowly lifted and she had a CT of her head, cervical spine, abdomen and pelvis without contrast. All were negative for acute findings. Patient was also found to have hematuria but no significant signs of urinary infection. She is on aspirin and clopidogrel. Chest x-ray was also done which was negative for infection. Initial labs: WBC 18.79, hemoglobin 14.5, platelets 341, sodium 138, elevated potassium of 5.5, BUN 26, creatinine 1.4, lactic acid 2.0, AST 121, ALT 66, alkaline phosphatase 160, creatinine kinase 173, troponin I less than 0.017. UA RBC greater than 100, WBC 5-10, squamous epithelial cells and 0-5, bacteria rare. Patient is on Cipro for prophylactic UTIs. She does have loose stools so a C. difficile toxin was performed on loose stools and was negative. EKG normal sinus rhythm with ventricular rate 51 bpm. Diagnosis: Stroke: No - Discharge Data Discharge Date: 03/18/19 Discharge Disposition: Home, Self-Care 01 Condition: Good - Referral to Home Health Primary Care Physician: PCP Unknown - Patient Summary/Data Hospital Course: Patient was admitted for overnight observation. She had no significant issues overnight and blood sugars were stable. She'll be discharged home. Encouragement to watch her blood sugars and eat breakfast especially when her blood sugars are low 100. - Patient Instructions Diet: Diabetic Diet Activity: As Tolerated Driving: Do Not Drive Showering/Bathing: May Shower Other/Special Instructions: Follow up with PCP next week. - Discharge Plan *PRESCRIPTION DRUG MONITORING PROGRAM REVIEWED*: No *COPY OF PRESCRIPTION DRUG MONITORING REPORT IN PATIENT ADRIANNE: No Home Medications: Home Meds Acetaminophen/Codeine [Tylenol with Codeine No.3 300MG/30MG] 1 tab PO Q6HR PRN 12/27/13 [History] Amylase/Lipase/Protease [Cathy HIDALGO 24,000 Unit] 1 tab PO TID 12/27/13 [History] Insulin Aspart [NovoLOG] 0 units SQ ASDIRECTED 12/27/13 [History] Lisinopril 2.5 mg PO DAILY 12/27/13 [History] Spironolactone [Aldactone] 25 mg PO DAILY 12/27/13 [History] diphenhydrAMINE [Benadryl] 50 mg PO BEDTIME 12/27/13 [History] Ca Carbonate/Vitamin D3/Vit K [Calcium + D Soft Chewable Tab] 1 tab PO BID 09/30 [History] Cholecalciferol (Vitamin D3) [Vitamin D3] 5,000 units PO DAILY 09/30/16 [History ] Denosumab [Prolia] 1 injection SQ ASDIRECTED 09/30/16 [History] Furosemide [Lasix] 40 mg PO BID 09/30/16 [History] Carvedilol 6.25 mg PO BID 02/12/18 [History] Cyanocobalamin (Vitamin B-12) [Vitamin B-12] 1,000 mcg PO DAILY 02/12/18 [ History] Insulin Glargine,Hum.Rec.Anlog [Basaglar Kwikpen U-100] 22 units SQ DAILY [History] Leg Cramp Relief 2 tab PO BID 02/12/18 [History] Magnesium Gluconate [Magonate] 2 tab PO TID 02/12/18 [History] Potassium 99 mg PO DAILY 02/12/18 [History] Rosuvastatin [Crestor] 5 mg PO DAILY 02/12/18 [History] Clopidogrel [Plavix] 75 mg PO DAILY 02/13/18 [History] Pantoprazole Sodium [Protonix] 20 mg PO DAILY 12/15/18 [History] Acetaminophen [Tylenol] 650 mg PO Q6H 03/17/19 [History] Aspirin 81 mg PO DAILY 03/17/19 [History] Ciprofloxacin [Ciprofloxacin HCl] 250 mg PO DAILY 03/17/19 [History] Levothyroxine 112 mcg PO DAILY 03/17/19 [History] Oxygen Therapy Mode: Room Air Patient Handouts: Hypoglycemia, [id number] Referrals: Lexy Ruvalcaba NP [ED Midlevel Provider] - 03/24/19 10:30 am (Please follow up with Lexy Ruvalcaba on at 1030am. ) - Discharge Summary/Plan Comment DC Time >30 min.: No Discharge Summary/Plan Comment: Discharged home in good condition. Follow-up with primary care provider next week. Continue on Lantus 18 units, but encourage not skipping meals. - General Info Date of Service: 03/18/19 Admission Dx/Problem (Free Text: Admission Diagnosis/Problem Admission Diagnosis/Problem Hypothermia Subjective Update: Patient is doing well without any complaints. Functional Status: Reports: Pain Controlled - Review of Systems General: Reports: No Symptoms HEENT: Reports: No Symptoms Pulmonary: Reports: No Symptoms Cardiovascular: Reports: No Symptoms Gastrointestinal: Reports: No Symptoms - Patient Data Vitals - Most Recent: Last Vital Signs Temp 97.3 F 03/18/19 11:31 Pulse 77 03/18/19 11:31 Resp 16 03/18/19 11:31 BP 101/51 L 03/18/19 11:31 Pulse Ox 91 L 03/18/19 11:31 Weight - Most Recent: 113 lb I&O - Last 24 hours: Intake & Output 03/17/19 03/18/19 03/18/19 22:59 06:59 14:59 Intake Total 910 600 180 Output Total 850 800 Balance 60 -200 180 Lab Results - Last 24 hrs: Laboratory Results - last 24 hr 03/17/19 03/17/19 03/17/19 Range/Units 15:21 15:25 15:25 WBC 18.79 H (3.98-10.04) K/mm3 RBC 4.90 (3.98-5.22) M/mm3 Hgb 14.5 D (11.2-15.7) gm/dl Hct 44.5 (34.1-44.9) % MCV 90.8 D (79.4-94.8) fl MCH 29.6 (25.6-32.2) pg MCHC 32.6 (32.2-35.5) g/dl RDW Std Deviation 41.7 (36.4-46.3) fL Plt Count 341 (182-369) K/mm3 MPV 10.6 (9.4-12.3) fl Neut % (Auto) 66.6 (34.0-71.1) % Lymph % (Auto) 26.6 (19.3-51.7) % Robertson % (Auto) 5.6 (4.7-12.5) % Eos % (Auto) 0.6 L (0.7-5.8) Baso % (Auto) 0.2 (0.1-1.2) % Neut # (Auto) 12.51 H (1.56-6.13) K/mm3 Lymph # (Auto) 5.00 H (1.18-3.74) K/mm3 Robertson # (Auto) 1.06 H (0.24-0.36) K/mm3 Eos # (Auto) 0.11 (0.04-0.36) K/mm3 Baso # (Auto) 0.04 (0.01-0.08) K/mm3 Sodium 138 (136-145) mEq/L Potassium 5.5 H (3.5-5.1) mEq/L Chloride 99 (98-107) mEq/L Carbon Dioxide 34 H (21-32) mEq/L Anion Gap 10.5 (5-15) BUN 26 H (7-18) mg/dL Creatinine 1.4 H (0.55-1.02) mg/dL Est Cr Clr Drug Dosing TNP Estimated GFR (MDRD) 36 (>60) mL/min BUN/Creatinine Ratio 18.6 H (14-18) Glucose 54 L (83-115) mg/dL POC Glucose 59 L (83-110) mg/dL Hemoglobin A1c (4.50-6.20) % Lactic Acid (0.4-2.0) mmol/L Calcium 9.6 D (8.5-10.1) mg/dL Magnesium 1.8 (1.8-2.4) mg/dl Total Bilirubin 0.7 (0.2-1.0) mg/dL AST 121 H (15-37) U/L ALT 66 H (14-59) U/L Alkaline Phosphatase 160 H (46-116) U/L Creatine Kinase (26-192) U/L Troponin I < 0.017 (0.00-0.056) ng/mL Total Protein 7.3 (6.4-8.2) g/dl Albumin 3.5 (3.4-5.0) g/dl Globulin 3.8 gm/dL Albumin/Globulin Ratio 0.9 L (1-2) Urine Color (Yellow) Urine Appearance (Clear) Urine pH (5.0-8.0) Ur Specific [place]eth[place] (1.005-1.030) Urine Protein (Negative) Urine Glucose (UA) (Negative) Urine Ketones (Negative) Urine Occult Blood (Negative) Urine Nitrite (Negative) Urine Bilirubin (Negative) Urine Urobilinogen (0.2-1.0) Ur Leukocyte Esterase (Negative) Urine RBC (0-5) /hpf Urine WBC (0-5) /hpf Ur Squamous Epith Cells (0-5) /hpf Urine Bacteria (FEW) /hpf Urine Mucus (FEW) /hpf C.difficile 027-NAP1-B1 C. difficile Tox (PCR) 03/17/19 03/17/19 03/17/19 Range/Units 15:25 15:25 15:34 WBC (3.98-10.04) K/mm3 RBC (3.98-5.22) M/mm3 Hgb (11.2-15.7) gm/dl Hct (34.1-44.9) % MCV (79.4-94.8) fl MCH (25.6-32.2) pg MCHC (32.2-35.5) g/dl RDW Std Deviation (36.4-46.3) fL Plt Count (182-369) K/mm3 MPV (9.4-12.3) fl Neut % (Auto) (34.0-71.1) % Lymph % (Auto) (19.3-51.7) % Robertson % (Auto) (4.7-12.5) % Eos % (Auto) (0.7-5.8) Baso % (Auto) (0.1-1.2) % Neut # (Auto) (1.56-6.13) K/mm3 Lymph # (Auto) (1.18-3.74) K/mm3 Robertson # (Auto) (0.24-0.36) K/mm3 Eos # (Auto) (0.04-0.36) K/mm3 Baso # (Auto) (0.01-0.08) K/mm3 Sodium (136-145) mEq/L Potassium (3.5-5.1) mEq/L Chloride (98-107) mEq/L Carbon Dioxide (21-32) mEq/L Anion Gap (5-15) BUN (7-18) mg/dL Creatinine (0.55-1.02) mg/dL Est Cr Clr Drug Dosing Estimated GFR (MDRD) (>60) mL/min BUN/Creatinine Ratio (14-18) Glucose (83-115) mg/dL POC Glucose (83-110) mg/dL Hemoglobin A1c (4.50-6.20) % Lactic Acid 2.0 (0.4-2.0) mmol/L Calcium (8.5-10.1) mg/dL Magnesium (1.8-2.4) mg/dl Total Bilirubin (0.2-1.0) mg/dL AST (15-37) U/L ALT (14-59) U/L Alkaline Phosphatase (46-116) U/L Creatine Kinase 173 (26-192) U/L Troponin I (0.00-0.056) ng/mL Total Protein (6.4-8.2) g/dl Albumin (3.4-5.0) g/dl Globulin gm/dL Albumin/Globulin Ratio (1-2) Urine Color [place] H (Yellow) Urine Appearance Slt cloudy H (Clear) Urine pH 6.5 (5.0-8.0) Ur Specific [place] 1.015 (1.005-1.030) Urine Protein Negative (Negative) Urine Glucose (UA) Negative (Negative) Urine Ketones Negative (Negative) Urine Occult Blood 3+ H (Negative) Urine Nitrite Negative (Negative) Urine Bilirubin Negative (Negative) Urine Urobilinogen 0.2 (0.2-1.0) Ur Leukocyte Esterase 1+ H (Negative) Urine RBC >100 H (0-5) /hpf Urine WBC 5-10 H (0-5) /hpf Ur Squamous Epith Cells 0-5 (0-5) /hpf Urine Bacteria Rare (FEW) /hpf Urine Mucus Not seen (FEW) /hpf C.difficile 027-NAP1-B1 C. difficile Tox (PCR) 1003/17/19 03/17/19 Range/Units 16:04 17:39 19:00 WBC (3.98-10.04) K/mm3 RBC (3.98-5.22) M/mm3 Hgb (11.2-15.7) gm/dl Hct (34.1-44.9) % MCV (79.4-94.8) fl MCH (25.6-32.2) pg MCHC (32.2-35.5) g/dl RDW Std Deviation (36.4-46.3) fL Plt Count (182-369) K/mm3 MPV (9.4-12.3) fl Neut % (Auto) (34.0-71.1) % Lymph % (Auto) (19.3-51.7) % Robertson % (Auto) (4.7-12.5) % Eos % (Auto) (0.7-5.8) Baso % (Auto) (0.1-1.2) % Neut # (Auto) (1.56-6.13) K/mm3 Lymph # (Auto) (1.18-3.74) K/mm3 Robertson # (Auto) (0.24-0.36) K/mm3 Eos # (Auto) (0.04-0.36) K/mm3 Baso # (Auto) (0.01-0.08) K/mm3 Sodium (136-145) mEq/L Potassium (3.5-5.1) mEq/L Chloride (98-107) mEq/L Carbon Dioxide (21-32) mEq/L Anion Gap (5-15) BUN (7-18) mg/dL Creatinine (0.55-1.02) mg/dL Est Cr Clr Drug Dosing Estimated GFR (MDRD) (>60) mL/min BUN/Creatinine Ratio (14-18) Glucose (83-115) mg/dL POC Glucose 203 H 107 (83-110) mg/dL Hemoglobin A1c (4.50-6.20) % Lactic Acid (0.4-2.0) mmol/L Calcium (8.5-10.1) mg/dL Magnesium (1.8-2.4) mg/dl Total Bilirubin (0.2-1.0) mg/dL AST (15-37) U/L ALT (14-59) U/L Alkaline Phosphatase (46-116) U/L Creatine Kinase (26-192) U/L Troponin I (0.00-0.056) ng/mL Total Protein (6.4-8.2) g/dl Albumin (3.4-5.0) g/dl Globulin gm/dL Albumin/Globulin Ratio (1-2) Urine Color (Yellow) Urine Appearance (Clear) Urine pH (5.0-8.0) Ur Specific [place] (1.005-1.030) Urine Protein (Negative) Urine Glucose (UA) (Negative) Urine Ketones (Negative) Urine Occult Blood (Negative) Urine Nitrite (Negative) Urine Bilirubin (Negative) Urine Urobilinogen (0.2-1.0) Ur Leukocyte Esterase (Negative) Urine RBC (0-5) /hpf Urine WBC (0-5) /hpf Ur Squamous Epith Cells (0-5) /hpf Urine Bacteria (FEW) /hpf Urine Mucus (FEW) /hpf C.difficile 027-NAP1-B1 Presumptive negative C. difficile Tox (PCR) Negative 03/17/19 03/17/19 03/18/19 Range/Units 20:03 20:43 04:00 WBC (3.98-10.04) K/mm3 RBC (3.98-5.22) M/mm3 Hgb (11.2-15.7) gm/dl Hct (34.1-44.9) % MCV (79.4-94.8) fl MCH (25.6-32.2) pg MCHC (32.2-35.5) g/dl RDW Std Deviation (36.4-46.3) fL Plt Count (182-369) K/mm3 MPV (9.4-12.3) fl Neut % (Auto) (34.0-71.1) % Lymph % (Auto) (19.3-51.7) % Robertson % (Auto) (4.7-12.5) % Eos % (Auto) (0.7-5.8) Baso % (Auto) (0.1-1.2) % Neut # (Auto) (1.56-6.13) K/mm3 Lymph # (Auto) (1.18-3.74) K/mm3 Robertson # (Auto) (0.24-0.36) K/mm3 Eos # (Auto) (0.04-0.36) K/mm3 Baso # (Auto) (0.01-0.08) K/mm3 Sodium (136-145) mEq/L Potassium (3.5-5.1) mEq/L Chloride (98-107) mEq/L Carbon Dioxide (21-32) mEq/L Anion Gap (5-15) BUN (7-18) mg/dL Creatinine (0.55-1.02) mg/dL Est Cr Clr Drug Dosing Estimated GFR (MDRD) (>60) mL/min BUN/Creatinine Ratio (14-18) Glucose (83-115) mg/dL POC Glucose 213 H 192 H 206 H (83-110) mg/dL Hemoglobin A1c (4.50-6.20) % Lactic Acid (0.4-2.0) mmol/L Calcium (8.5-10.1) mg/dL Magnesium (1.8-2.4) mg/dl Total Bilirubin (0.2-1.0) mg/dL AST (15-37) U/L ALT (14-59) U/L Alkaline Phosphatase (46-116) U/L Creatine Kinase (26-192) U/L Troponin I (0.00-0.056) ng/mL Total Protein (6.4-8.2) g/dl Albumin (3.4-5.0) g/dl Globulin gm/dL Albumin/Globulin Ratio (1-2) Urine Color (Yellow) Urine Appearance (Clear) Urine pH (5.0-8.0) Ur Specific [place] (1.005-1.030) Urine Protein (Negative) Urine Glucose (UA) (Negative) Urine Ketones (Negative) Urine Occult Blood (Negative) Urine Nitrite (Negative) Urine Bilirubin (Negative) Urine Urobilinogen (0.2-1.0) Ur Leukocyte Esterase (Negative) Urine RBC (0-5) /hpf Urine WBC (0-5) /hpf Ur Squamous Epith Cells (0-5) /hpf Urine Bacteria (FEW) /hpf Urine Mucus (FEW) /hpf C.difficile 027-NAP1-B1 C. difficile Tox (PCR) 03/18/19 03/18/19 03/18/19 Range/Units 05:12 05:12 05:12 WBC 8.11 (3.98-10.04) K/mm3 RBC 3.91 L (3.98-5.22) M/mm3 Hgb 11.4 D (11.2-15.7) gm/dl Hct 35.2 (34.1-44.9) % MCV 90.0 (79.4-94.8) fl MCH 29.2 (25.6-32.2) pg MCHC 32.4 (32.2-35.5) g/dl RDW Std Deviation 40.2 (36.4-46.3) fL Plt Count 209 D (182-369) K/mm3 MPV 10.5 (9.4-12.3) fl Neut % (Auto) 67.8 (34.0-71.1) % Lymph % (Auto) 21.6 (19.3-51.7) % Robertson % (Auto) 10.2 (4.7-12.5) % Eos % (Auto) 0.2 L (0.7-5.8) Baso % (Auto) 0.1 (0.1-1.2) % Neut # (Auto) 5.49 (1.56-6.13) K/mm3 Lymph # (Auto) 1.75 (1.18-3.74) K/mm3 Robertson # (Auto) 0.83 H (0.24-0.36) K/mm3 Eos # (Auto) 0.02 L (0.04-0.36) K/mm3 Baso # (Auto) 0.01 (0.01-0.08) K/mm3 Sodium 136 (136-145) mEq/L Potassium 4.1 (3.5-5.1) mEq/L Chloride 99 (98-107) mEq/L Carbon Dioxide 29 (21-32) mEq/L Anion Gap 12.1 (5-15) BUN 24 H (7-18) mg/dL Creatinine 1.4 H (0.55-1.02) mg/dL Est Cr Clr Drug Dosing 26.62 Estimated GFR (MDRD) 36 (>60) mL/min BUN/Creatinine Ratio 17.1 (14-18) Glucose 146 H (83-115) mg/dL POC Glucose (83-110) mg/dL Hemoglobin A1c 7.50 H (4.50-6.20) % Lactic Acid (0.4-2.0) mmol/L Calcium 8.4 L (8.5-10.1) mg/dL Magnesium 1.5 L (1.8-2.4) mg/dl Total Bilirubin 0.6 (0.2-1.0) mg/dL AST 75 H (15-37) U/L ALT 55 (14-59) U/L Alkaline Phosphatase 122 H (46-116) U/L Creatine Kinase (26-192) U/L Troponin I (0.00-0.056) ng/mL Total Protein 5.4 L (6.4-8.2) g/dl Albumin 2.5 L (3.4-5.0) g/dl Globulin 2.9 gm/dL Albumin/Globulin Ratio 0.9 L (1-2) Urine Color (Yellow) Urine Appearance (Clear) Urine pH (5.0-8.0) Ur Specific [place] (1.005-1.030) Urine Protein (Negative) Urine Glucose (UA) (Negative) Urine Ketones (Negative) Urine Occult Blood (Negative) Urine Nitrite (Negative) Urine Bilirubin (Negative) Urine Urobilinogen (0.2-1.0) Ur Leukocyte Esterase (Negative) Urine RBC (0-5) /hpf Urine WBC (0-5) /hpf Ur Squamous Epith Cells (0-5) /hpf Urine Bacteria (FEW) /hpf Urine Mucus (FEW) /hpf C.difficile 027-NAP1-B1 C. difficile Tox (PCR) 03/18/19 03/18/19 Range/Units 06:50 11:28 WBC (3.98-10.04) K/mm3 RBC (3.98-5.22) M/mm3 Hgb (11.2-15.7) gm/dl Hct (34.1-44.9) % MCV (79.4-94.8) fl MCH (25.6-32.2) pg MCHC (32.2-35.5) g/dl RDW Std Deviation (36.4-46.3) fL Plt Count (182-369) K/mm3 MPV (9.4-12.3) fl Neut % (Auto) (34.0-71.1) % Lymph % (Auto) (19.3-51.7) % Robertson % (Auto) (4.7-12.5) % Eos % (Auto) (0.7-5.8) Baso % (Auto) (0.1-1.2) % Neut # (Auto) (1.56-6.13) K/mm3 Lymph # (Auto) (1.18-3.74) K/mm3 Robertson # (Auto) (0.24-0.36) K/mm3 Eos # (Auto) (0.04-0.36) K/mm3 Baso # (Auto) (0.01-0.08) K/mm3 Sodium (136-145) mEq/L Potassium (3.5-5.1) mEq/L Chloride (98-107) mEq/L Carbon Dioxide (21-32) mEq/L Anion Gap (5-15) BUN (7-18) mg/dL Creatinine (0.55-1.02) mg/dL Est Cr Clr Drug Dosing Estimated GFR (MDRD) (>60) mL/min BUN/Creatinine Ratio (14-18) Glucose (83-115) mg/dL POC Glucose 92 142 H (83-110) mg/dL Hemoglobin A1c (4.50-6.20) % Lactic Acid (0.4-2.0) mmol/L Calcium (8.5-10.1) mg/dL Magnesium (1.8-2.4) mg/dl Total Bilirubin (0.2-1.0) mg/dL AST (15-37) U/L ALT (14-59) U/L Alkaline Phosphatase (46-116) U/L Creatine Kinase (26-192) U/L Troponin I (0.00-0.056) ng/mL Total Protein (6.4-8.2) g/dl Albumin (3.4-5.0) g/dl Globulin gm/dL Albumin/Globulin Ratio (1-2) Urine Color (Yellow) Urine Appearance (Clear) Urine pH (5.0-8.0) Ur Specific [place] (1.005-1.030) Urine Protein (Negative) Urine Glucose (UA) (Negative) Urine Ketones (Negative) Urine Occult Blood (Negative) Urine Nitrite (Negative) Urine Bilirubin (Negative) Urine Urobilinogen (0.2-1.0) Ur Leukocyte Esterase (Negative) Urine RBC (0-5) /hpf Urine WBC (0-5) /hpf Ur Squamous Epith Cells (0-5) /hpf Urine Bacteria (FEW) /hpf Urine Mucus (FEW) /hpf C.difficile 027-NAP1-B1 C. difficile Tox (PCR) Med Orders - Current: Current Medications Acetaminophen (Tylenol) 650 mg PO Q4H PRN PRN Reason: Pain (Mild 1-3)/fever Carvedilol (Coreg) 6.25 mg PO BID [facility] Last Admin: 03/18/19 08:16 Dose: 6.25 mg Clopidogrel Bisulfate (Plavix) 75 mg PO DAILY [facility] Last Admin: 03/18/19 08:17 Dose: 75 mg Diphenhydramine HCl (Benadryl) 50 mg PO BEDTIME PRN PRN Reason: Insomnia Last Admin: 03/17/19 23:17 Dose: 50 mg Furosemide (Lasix) 40 mg PO BIDDIURETIC [facility] Last Admin: 03/18/19 06:44 Dose: 40 mg Insulin Glargine (Lantus) 10 unit SUBCUT Q24H [facility] Last Admin: 03/17/19 22:01 Dose: 10 units Insulin Human Lispro (Humalog) 0 unit SUBCUT QIDACANDBED [facility]; Protocol Last Admin: 03/18/19 12:58 Dose: Not Given Levothyroxine Sodium (Levothyroxine) 112 mcg PO DAILY [facility] Last Admin: 03/18/19 08:16 Dose: 112 mcg Ondansetron HCl (Zofran) 4 mg IV Q4H PRN PRN Reason: Nausea/Vomiting Pantoprazole Sodium (Protonix) 40 mg PO DAILY@0700 [facility] Last Admin: 03/18/19 06:44 Dose: 40 mg Rosuvastatin Calcium (Crestor) 5 mg PO DAILY [facility] Last Admin: 03/18/19 08:18 Dose: 5 mg Sodium Chloride (Saline Flush) 10 ml FLUSH ASDIRECTED PRN PRN Reason: Keep Vein Open Discontinued Medications Dextrose/Water (Dextrose 50% In Water) Confirm Administered Dose 50 ml .ROUTE .STK-MED ONE Stop: 03/17/19 15:23 Last Admin: 03/17/19 16:02 Dose: Not Given Dextrose/Water (Dextrose 50% In Water) 50 ml IVPUSH ASDIRECTED ONE Stop: 03/17/19 15:28 Last Admin: 03/17/19 15:27 Dose: 50 ml Diphenhydramine HCl (Benadryl) 75 mg PO BEDTIME PRN PRN Reason: Insomnia Sodium Chloride (Normal Saline) 1,000 mls @ 125 mls/hr IV ASDIRECTED [facility] Last Admin: 03/17/19 16:03 Dose: 125 mls/hr Magnesium Sulfate 4 gm/ Premix 100 mls @ 25 mls/hr IV ONETIME ONE Stop: 03/18/19 11:59 Last Admin: 03/18/19 08:04 Dose: 25 mls/hr Influenza Virus Vaccine (Pharmacy To Dose - Influenza Vaccine) 1 each IM ONETIME ONE Stop: 03/17/19 22:23 Influenza Virus Vaccine (Fluzone High-Dose 2018- Syringe) 180 mcg IM .ONCE ONE Stop: 03/18/19 10:01 Sodium Chloride (Saline Flush) 10 ml FLUSH ASDIRECTED PRN PRN Reason: Keep Vein Open Last Admin: 03/17/19 16:03 Dose: 10 ml - Exam Quality Assessment: Denies: Supplemental Oxygen General: Reports: Alert, Oriented HEENT: Reports: Pupils Equal, Pupils Reactive, EOMI, Mucous Membr. Moist/[place] Neck: Reports: Supple Lungs: Reports: Clear to Auscultation, Normal Respiratory Effort Cardiovascular: Reports: Regular Rate, Regular Rhythm GI/Abdominal Exam: Normal Bowel Sounds, Soft, Non-Tender, No Organomegaly, No Distention, No Abnormal Bruit, No Mass, Pelvis Stable Skin: Reports: Other (Multiple bruises on her head and arms especially the left side.) Neurological: Reports: No New Focal Deficit Psy/Mental Status: Reports: Alert, Normal Affect, Normal Mood
--- NOTE | 2019-03-19 08:01 | CR ---
Chest: Portable view of the chest was obtained. Comparison: Prior chest x-ray of 04/24/17. Heart size and mediastinum are within normal limits for portable technique. Lungs are clear. Previous right shoulder surgery is noted. No acute osseous abnormality is appreciated. Surgical clips are seen from prior cholecystectomy. Impression: 1. Findings felt to be incidental. 2. Nothing acute is appreciated on portable chest x-ray. Diagnostic code #2
--- NOTE | 2019-03-19 08:04 | CT ---
CT cervical spine Technique: Multiple axial sections of the cervical spine were obtained from above C1 inferiorly to the bottom of T3. Reconstructed sagittal and coronal images were reviewed. Findings: Mild spondylolisthesis is noted at C3-C4 compatible with degenerative apophyseal change. More prominent spondylolisthesis is noted at C4-C5 also felt compatible with degenerative apophyseal change. Spondylolisthesis at C4-C5 measures approximately 2.5 mm. Moderate disc space narrowing is noted at C4-C5. Severe disc space narrowing is noted at C5-C6 and C6-C7. Posterior osteophytes are also noted at these 3 levels. Anterior osteophytes are seen most prominent at C5-C6 and C6-C7. Diffuse degenerative change is seen throughout other levels of the cervical spine. Moderate bilateral neural foraminal stenosis is noted at C6-C7. Severe right-sided neural foraminal stenosis noted at C5-C6 with mild left-sided neural foraminal stenosis noted at C5-C6. Mild bilateral neural foraminal stenosis noted at C4-C5. Mild left-sided neural foraminal stenosis noted at C3-C4. No fracture is appreciated. Impression: 1. Diffuse degenerative change as described above. 2. Nothing acute is appreciated on CT study of the cervical spine. Diagnostic code #3 I agree with preliminary report from [facility], finalized on 03/17/19, 7:08 PM Central Time
--- NOTE | 2019-03-19 08:09 | CT ---
CT abdomen and pelvis Technique: Multiple axial sections were obtained from above the dome of the diaphragm inferiorly through the pubic symphysis. Intravenous and oral contrast not utilized. Comparison: Prior abdominal and pelvic CT study of 08/19/18. Findings: Visualized lung bases show nothing acute. Diffuse fatty infiltration is seen within the liver. Diffuse intrahepatic biliary air and extrahepatic biliary air is seen. Surgical clips are seen from prior cholecystectomy. Additional surgical clips are seen within the upper right abdomen. There may be some scattered pancreatic calcifications. Adrenal glands show no nodule. Kidneys show slight vascular calcification. Cyst is noted within the mid kidney measuring about 2.3 cm in size. This is noted on previous exam. No abnormal calcifications are seen along the course of the ureters. Diffuse atherosclerotic calcification is seen within the aorta and branch vessels. No aneurysm is seen. No retroperitoneal adenopathy or mesenteric abnormalities are appreciated. Appendix is not visualized with certainty. Increased stool is noted throughout the colon. Bladder is mildly distended with urine. No free fluid or inflammatory change is seen. Bone window settings were reviewed which shows mild scattered degenerative change within the spine. Impression: 1. Diffuse fatty infiltration within the liver with intrahepatic and extrahepatic biliary air compatible with previous intervention at the sphincter of Sanjeev. Previous cholecystectomy is noted. 2. Dilated urine filled bladder. 3. Mild increased stool throughout the colon. 4. Nothing is seen on this noncontrast exam to indicate an etiology for the patient's hematuria. Diagnostic code #2 I agree with preliminary report from [facility], finalized on 03/17/19, 7:13 PM Central Time
== END 2019-03-18 14:01 | disposition home or self-care (01) ==
LOC: JD.ED 15:17 → JD.MS 18:52
PROVIDERS: ADMIT Family Medicine; ATTEND Family Medicine
DX: R55 Syncope and collapse (principal); T68.XXXA Hypothermia, initial encounter; R31.9 Hematuria, unspecified; E87.5 Hyperkalemia; D72.829 Elevated white blood cell count, unspecified; E11.649 Type 2 diabetes mellitus with hypoglycemia without coma; I13.0 Hypertensive heart and chronic kidney disease with heart failure and stage 1 through stage 4 chronic kidney disease, or unspecified chronic kidney disease; E11.22 Type 2 diabetes mellitus with diabetic chronic kidney disease; I50.9 Heart failure, unspecified; N18.3 Chronic kidney disease, stage 3 (moderate); E03.9 Hypothyroidism, unspecified; Z23 Encounter for immunization; Z95.5 Presence of coronary angioplasty implant and graft; Z79.82 Long term (current) use of aspirin; Z79.02 Long term (current) use of antithrombotics/antiplatelets; Z79.4 Long term (current) use of insulin; Z79.899 Other long term (current) drug therapy
CPT/HCPCS: 36415; 70450; 71045; 72125; 74176; 80053; 81001; 82550; 82962; 83036; 83605; 83735; 84484; 85025; 87040; 87493; 90662; 93005; 96361; 96365; 96366; 96375; 99285; A9270; G0008; G0378; J1815; J3475; J7040; J7060; 93010; 96374; 99284